=== PATIENT | female | born 1965 | race Caucasian/White ===

== ENCOUNTER 2021-07-06 06:42 | Inpatient (IN) | payer MEDICAID, SELFPAY ==
[~2021-07-06] VITALS: Ht 172.7 cm; Wt 84.4 kg
[2021-07-06 06:42] VITALS: BP 133/77
--- NOTE | 2021-07-06 06:42 | NUR ---
PT TREMAINE JIMENES. TAKEN TO BED 11
[2021-07-06] MEDS ORDERED: DICYCLOMINE 10 MG CAP PO ONE (07:25)
--- NOTE | 2021-07-06 07:25 | NUR ---
XRAY AT PATIENT BEDSIDE
--- NOTE | 2021-07-06 07:28 | NUR ---
18G IV ESTABLISHED IN L AC AND BLOODWORK COLLECTED. BLOODWORK HANDED TO TONGUE LINING STITCHER BEDSIDE
--- NOTE | 2021-07-06 07:30 | NUR ---
56Y FEMALE BIB SELF FROM HOME DUE TO ABDOMINAL CRAMPING/PAIN SINCE 0300 TODAY. PER PATIENT THE ABDOMINAL PAIN RANDOMLY STARTED AND HAS YET TO RESOLVE ITSELF. PT +N/-V. ABDOMEN IS TENDER TO TOUCH AND SOFT. PT DENIES ANY CHEST PAIN, SOB, FEVER/CHILLS. SKIN DRY AND INTACT AND PATIENT A&OX4. PT PLACED IN GOWN AND PUT ON BEDSIDE HOT WATER HEATER INSTALLER PMH: HTN, DM, SCHIZOPHRENIA, ESRD, BKA, BIPOLAR NKA
--- NOTE | 2021-07-06 07:36 | NUR ---
JOSE ROBERTO ISAAC COLLECTED AND WALKED OVER TO LAB
[2021-07-06 08:11] LABS: MAGNESIUM 1.9 mg/dL (1.8-2.4); PHOSPHORUS 5.8 mg/dL (2.5-4.9); PROTHROMBIN TIME 10.2 secs (10.8-13.4)
[2021-07-06 08:14] LABS: ALBUMIN 3.3 g/dL (3.4-5.0); ANION GAP 17.7 (8-16); CARBON DIOXIDE 21.5 mmol/L (21-32); POTASSIUM 4.2 mmol/L (3.5-5.1); TOTAL BILIRUBIN 0.5 mg/dL (0.0-1.0)
[2021-07-06 08:25] LABS: BASOPHILS # (AUTO) 0.2 K/uL (0.00-0.22); BASOPHILS % (AUTO) 0.9 % (0.0-2.0); EOSINOPHILS # (AUTO) 0.1 K/uL (0-0.4); EOSINOPHILS % (AUTO) 0.6 % (0.0-4.0); HEMATOCRIT 33.5 % (36-48); HEMOGLOBIN 10.6 g/dL (12.0-16.0); LYMPHOCYTES % (AUTO) 6.4 % (20.5-51.1); MEAN CORPUSCULAR HEMOGLOBIN 28 pg (27-31); MEAN CORPUSCULAR HGB CONC 32 g/dL (33-37); MEAN CORPUSCULAR VOLUME 87.5 fL (80-94); MONOCYTES % (AUTO) 5.8 % (1.7-9.3); NEUTROPHILS # (AUTO) 14.1 K/uL (1.8-7.7); PLATELET COUNT (AUTO) 312 K/uL (140-450); RED BLOOD CELL COUNT(AUTO) 3.82 MIL/uL (4.20-5.40); RED CELL DISTRIBUTION WIDTH 17.3 % (11.6-13.7); WHITE BLOOD COUNT (AUTO) 16.4 K/uL (4.8-10.8)
[2021-07-06 08:26] LABS: NEUTROPHILS % (AUTO) 86.3 % (42.2-75.2)
--- NOTE | 2021-07-06 08:46 | NUR ---
Patient appears to be resting comfortably in bed. Vital Signs within normal limits. Respirations even and unlabored.
[2021-07-06] MEDS ORDERED: ONDANSETRON 4 MG/2 ML VIAL IVP ONE (10:00)
[2021-07-06] MEDS ORDERED: VANCOMYCIN 1,000 MG in DEXTROSE 5% 250 ML IV ONE (10:00)
[2021-07-06] MEDS ORDERED: MORPHINE SULFATE 4 MG/ML SYR IVP ONE (10:00)
[2021-07-06] MEDS ORDERED: PIPERACILLIN/TAZOBACTAM 2.25 GM in DEXTROSE 5% 50 ML IV ONE (10:00)
[2021-07-06] MEDS ORDERED: PIPERACILLIN/TAZOBACTAM 2.25 GM VIAL IV ONE ×3 (10:03→22:58)
[2021-07-06] MEDS ORDERED: VANCOMYCIN 1,000 MG VIAL ONE (10:03)
[2021-07-06] MEDS ORDERED: AMLO10TA PO (10:41)
[2021-07-06] MEDS ORDERED: GABA300C PO (10:41)
[2021-07-06] MEDS ORDERED: METO25TE2 PO (10:41)
--- NOTE | 2021-07-06 10:41 | NUR ---
MED REC COMPLETED FOR PATIENT
--- NOTE | 2021-07-06 11:34 | NUR ---
Patient will be admitted to care of [facility]. Admited to TELE. TELE HOLD IN ED BED 11. Belongings list completed.
--- NOTE | 2021-07-06 12:35 | NUR ---
PATIENT PROVIDED WITH LUNCH TRAY AT BEDSIDE
--- NOTE | 2021-07-06 12:57 | NUR ---
[facility] flores in [facility] - 07/06/21 at 1300 by [email or web address] PT MOVED FROM BED 11 TO BED 9
--- NOTE | 2021-07-06 13:40 | NUR ---
Patient will be admitted to care of DR. JOHNSON. Admited to TELE. Will go to room 125B. Belongings list completed. Report to MARYBETH KELLY. PT TAKEN VIA SUSHILA WITH CHAD BRYAN
--- NOTE | 2021-07-06 13:50 | NUR ---
PT ARRIVED AT UNIT VIA GURNEY, WAS ABLE TO TRANSFER SELF TO BED. PT AWAKE ALERT, POSITIONED TO COMFORT. IV TO LEFT AC 20G PATENT INTACT, SL. PT ON ROOM AIR, NO SOB NOTED, SKIN INTACT. INITIAL ASSESSMENT DONE, ALL SAFETY PRECAUTION MET, ORIENT PT TO CALL LIGHT, BED AND ROOM, CALL LIGHT WITHIN REACH, WILL CONTINUE TO MONITOR.
[2021-07-06 14:00] VITALS: BP 120/63
[2021-07-06] MEDS: LORazepam 2 MG/ML VIAL IVP PRN ×2 (15:02→22:45)
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
[2021-07-06 16:00] VITALS: BP 116/57
--- NOTE | 2021-07-06 16:00 | NUR ---
CALLED TELEPHYCH SERVICE REGARDING NEW ORDER FOR CONSULT. WAS TOLD DR. Iniguez WILL CALL BACK WITH TIME FOR TELE CONFRENCE. AWAITING FOR CALL BACK
--- NOTE | 2021-07-06 16:30 | NUR ---
PT HAS NOT URINATE, AND PT REFUSED CATHETER INSERTION, NOTIFIED DR JOHNSON.
--- NOTE | 2021-07-06 17:08 | NUR ---
RECEIVED PHONE CALL FROM 'S OFFICE REGARDING TELEPSYCH, STATED SCHEDULED AT [address] [facility]. WILL ENDORSE
[2021-07-06] MEDS ORDERED: DEXTROSE 50% 50 ML SYR IVP PRN (18:00)
[2021-07-06] MEDS ORDERED: PIPERACILLIN/TAZOBACTAM 3.375 GM VIAL IV ONE (18:15)
[2021-07-06] MEDS: PIPERACILLIN/TAZOBACTAM 2.25 GM in DEXTROSE 5% 50 ML IV SCH (18:46)
--- NOTE | 2021-07-06 19:35 | NUR ---
ENDORSED PT TO BAND SEWER NURSE FOR CONTINUOUS OF CARE.
[2021-07-06 20:00] VITALS: BP 155/70
[2021-07-06] MEDS: BLOOD GLUCOSE MONITORING 1 DEV DEV FS SCH (21:00)
[2021-07-07] VITALS: BP 150/72
--- NOTE | 2021-07-07 00:32 | NUR ---
PATIENT AWAKE ALERT X 3 PATIENT TALKING ABOUT THE MAFIA COMING TO KILL HER. PATIENT ON MONITOR SINUS LUNGS DIMINISH. PATIENT HAS A PERMA CATH UPPER RIGHT CHEST. OH TO PUT IN A PERMA CATH TOMORROW. CONSENT TO BE SIGN IN A.M.PATIENT HAD A STAT EKG SHOWED LEFT VENTRICULAR HYPERTROPHY. AWARE. PATIENT MEDICATED 2244 WITH ATIVAN 1 MG IVP.
[2021-07-07 04:00] VITALS: BP 156/70
[2021-07-07] MEDS ORDERED: PIPERACILLIN/TAZOBACTAM 2.25 GM VIAL IV ONE (05:37)
[2021-07-07] MEDS: PIPERACILLIN/TAZOBACTAM 2.25 GM in DEXTROSE 5% 50 ML IV SCH ×6 (06:00→23:28)
[2021-07-07] MEDS: BLOOD GLUCOSE MONITORING 1 DEV DEV FS SCH ×5 (06:24→21:32)
--- NOTE | 2021-07-07 07:30 | NUR ---
PT HAS BEEN ENDORSED BY FIELD NURSE CASE MANAGER NURSE FOR CONTINUITY OF CARE, POC DISCUSSED. PT IS RESTING IN BED WITH NO ACUTE S/S OF DISTRESS. PT CONFUSED AND KEEPS YELLING. CALL LIGHT WITHIN REACH, ALL SAFETY MEASURES IN PLACE, WILL CONTINUE TO MONITOR
[2021-07-07 08:00] VITALS: BP 138/64
--- NOTE | 2021-07-07 08:49 | NUR ---
PATIENT HAS BEEN SCREENED AND CATEGORIZED MODERATE NUTRITION RISK. PATIENT WILL BE SEEN WITHIN 3-5 DAYS OF ADMISSION. DENISE SAUN[address]ERS [address]
[2021-07-07] MEDS: LORazepam 2 MG/ML VIAL IVP PRN ×2 (09:13→15:33)
--- NOTE | 2021-07-07 09:13 | NUR ---
PRN ATIVAN ADMINISTERED PER MD ORDER. PT TOLERATED ADMINISTRATION. ALL SAFETY MEASURES IN PLACE. CALL LIGHT WITHIN REACH. WILL CONTINUE TO MONITOR.
[2021-07-07 11:05] LABS: ANION GAP 17.9 (8-16); CARBON DIOXIDE 18.3 mmol/L (21-32); POTASSIUM 4.2 mmol/L (3.5-5.1)
[2021-07-07 11:06] LABS: CREATININE 5.4 mg/dL (0.6-1.3)
--- NOTE | 2021-07-07 11:17 | NUR ---
NOTIFIED MD REGARDS TO CRITICAL, NO NEW ORDERS RECEIVED
--- NOTE | 2021-07-07 11:42 | NUR ---
[facility] IV MEDICATION ADMINISTERED PER MD ORDER, IV PATENT. BLOOD GLUCOSE IS 105, NO INSULIN NEEDED PER SLIDING SCALE
[2021-07-07 12:00] VITALS: BP 159/85
[2021-07-07 12:14] LABS: BASOPHILS # (AUTO) 0.1 K/uL (0.00-0.22); BASOPHILS % (AUTO) 0.3 % (0.0-2.0); EOSINOPHILS # (AUTO) 0.1 K/uL (0-0.4); EOSINOPHILS % (AUTO) 0.4 % (0.0-4.0); HEMATOCRIT 31.8 % (36-48); LYMPHOCYTES # (AUTO) 1.2 K/uL (2.5-16.5); MEAN CORPUSCULAR HEMOGLOBIN 28 pg (27-31); MEAN CORPUSCULAR HGB CONC 31 g/dL (33-37); MEAN CORPUSCULAR VOLUME 87.8 fL (80-94); MONOCYTES # (AUTO) 1.2 K/uL (0.8-1.0); MONOCYTES % (AUTO) 5.7 % (1.7-9.3); NEUTROPHILS # (AUTO) 17.9 K/uL (1.8-7.7); NEUTROPHILS % (AUTO) 87.6 % (42.2-75.2); PLATELET COUNT (AUTO) 244 K/uL (140-450); RED BLOOD CELL COUNT(AUTO) 3.62 MIL/uL (4.20-5.40); RED CELL DISTRIBUTION WIDTH 17.5 % (11.6-13.7); WHITE BLOOD COUNT (AUTO) 20.5 K/uL (4.8-10.8)
--- NOTE | 2021-07-07 13:00 | NUR ---
CONSENT FOR REMOVAL OF OLD CATH, AND REPLACEMENT OF NEW SHERMAN WAS RECEIVED VIA PHONE CALL WITH DAUGHTER. DR DUTTA AT BEDSIDE, UNSUCCESSFUL AT PLACING ORDERED SHERMAN, WILL GO UNDER ANESTHESIA THIS AFTERNOON FOR NEW PLACEMENT. FAMILY AWARE, PT AWARE - PLACED NPO. NO ACUTE DISTRESS, PT STABLE, CALL LIGHT WITHIN REACH
--- NOTE | 2021-07-07 13:02 | NUR ---
PTS DAUGHTER CALLED, STATES PT LIVES WITH THEM AND PT IS BECOMING INCREASINGLY DIFFICULT TO CARE FOR DUE TO PTS REFUSAL TO CONTINUE WITH MEDICATION. STATED ORDER SS CONSULT. MICAH WELCH [phone] IS DAUGHTERS PHONE NUMBER
--- NOTE | 2021-07-07 13:30 | NUR ---
PT INCONTINENT, CLEANED, BED CHANGED, REPOSITIONED, STABLE IN BED, WILL CONTINUE TO MONITOR
[2021-07-07] MEDS ORDERED: ACETAMINOPHEN 325 MG TAB PO PRN (14:20)
--- NOTE | 2021-07-07 14:50 | NUR ---
DC PLANNING: PER FAMILY REQUEST UNABLE TO TAKE CARE OF HER SHE IS TOO DIFFICULT. CALLED [facility] [phone] SPOKE WITH MISTY CALDERON DISCUSSED THE ISSUE PER YUMIKO ONCE SHE RECEIVE THE ORDER WILL WORK ON IT. CM TO FOLLOW Addendum: 07/07/21 at 1535 by Bria Hagan RN DC PLANNING: RECEIVED A CALL FROM [employer] CM NAME ALCIDES [phone] DISCUSSED THE DC PLAN NEEDS PER ALCIDES REQUESTING THE NEED FOR SNF PLACEMENT OR PSYCH PLACEMENT. NOTIFIED MD ,AWAITING FOR THE RESPONSE. CM TO FOLLOW
--- NOTE | 2021-07-07 15:33 | NUR ---
PRN ATIVAN ADMINISTERED PER MD ORDER, PT DYLON
[2021-07-07 16:00] VITALS: BP 157/87
--- NOTE | 2021-07-07 17:20 | NUR ---
PT HAS BEEN TAKEN TO THE OR IN STABLE CONDITION AFTER PT HAS BEEN CLEANED UP, LARGE BM NOTED.
[2021-07-07] MEDS ORDERED: LIDOCAINE 1% 500 MG/50 ML VIAL ONE (17:37)
[2021-07-07] MEDS ORDERED: BUPIVACAINE-MPF/EPI 0.25% 10 ML VIAL INJ ONE (17:37)
[2021-07-07] MEDS ORDERED: MIDAZOLAM 2 MG/2 ML VIAL ONE (17:50)
[2021-07-07] MEDS ORDERED: KETAMINE 500 MG/5 ML VIAL ONE (17:52)
[2021-07-07] MEDS ORDERED: PROPOFOL 200 MG/20 ML VIAL IV ONE (17:57)
[2021-07-07] MEDS ORDERED: HYDROmorphone 1 MG/ML AMP IVP PRN (18:40)
[2021-07-07] MEDS ORDERED: MORPHINE SULFATE 4 MG/ML SYR IV PRN (18:40)
[2021-07-07] MEDS ORDERED: LABETALOL 100 MG/20 ML VIAL ONE (18:44)
--- NOTE | 2021-07-07 19:02 | NUR ---
PT STILL IN OR , WILL ENDORSE POC TO TIME SIGNAL WIRER RN.
[2021-07-07 20:00] VITALS: BP 130/71
[2021-07-07] MEDS: HALOPERIDOL 5 MG TAB PO SCH (21:46)
[2021-07-08] MEDS: PIPERACILLIN/TAZOBACTAM 2.25 GM in DEXTROSE 5% 50 ML IV SCH ×4 (05:03→23:20)
[2021-07-08 06:01] LABS: ANION GAP 16.9 (8-16); CARBON DIOXIDE 18.1 mmol/L (21-32); MAGNESIUM 1.6 mg/dL (1.8-2.4); PHOSPHORUS 4.1 mg/dL (2.5-4.9)
[2021-07-08 06:13] LABS: CREATININE 5.5 mg/dL (0.6-1.3)
[2021-07-08 06:35] LABS: BASOPHILS % (AUTO) 0.1 % (0.0-2.0); EOSINOPHILS # (AUTO) 0.1 K/uL (0-0.4); EOSINOPHILS % (AUTO) 0.3 % (0.0-4.0); HEMATOCRIT 28.9 % (36-48); HEMOGLOBIN 9.2 g/dL (12.0-16.0); LYMPHOCYTES % (AUTO) 9.6 % (20.5-51.1); MEAN CORPUSCULAR HEMOGLOBIN 28 pg (27-31); MEAN CORPUSCULAR HGB CONC 32 g/dL (33-37); MEAN CORPUSCULAR VOLUME 87.8 fL (80-94); MONOCYTES # (AUTO) 1.3 K/uL (0.8-1.0); MONOCYTES % (AUTO) 6.1 % (1.7-9.3); NEUTROPHILS # (AUTO) 17.4 K/uL (1.8-7.7); NEUTROPHILS % (AUTO) 83.9 % (42.2-75.2); PLATELET COUNT (AUTO) 205 K/uL (140-450); RED BLOOD CELL COUNT(AUTO) 3.29 MIL/uL (4.20-5.40); RED CELL DISTRIBUTION WIDTH 17.1 % (11.6-13.7); WHITE BLOOD COUNT (AUTO) 20.8 K/uL (4.8-10.8)
--- NOTE | 2021-07-08 07:30 | NUR ---
RECEIVED BEDSIDE REPORT FROM ACID PATROLLER NURSE, NO ACUTE DISTRESS NOTED, ON ROOM AIR, NO SOB, LFA & LIJ IN PLACE, DRESSING DRY AND INTACT, INITIAL ASSESSMENT DONE, PT SELF TURNS, ALL SAFETY PRECAUTIONS MET, BED IN LOWEST POSITION, CALL LIGHT WITHIN REACH, WILL CONTINUE TO MONITOR.
[2021-07-08] MEDS: BLOOD GLUCOSE MONITORING 1 DEV DEV FS SCH ×4 (07:39→21:00)
[2021-07-08 08:00] VITALS: BP 135/70
[2021-07-08 12:00] VITALS: BP 137/70
--- NOTE | 2021-07-08 14:30 | NUR ---
FAMILY AT BEDSIDE, UPDATED ON POC, PT WILL HAVE DIALYSIS TMRW AM, PATIENT CLEANED AND REPOSITIONED
[2021-07-08 16:00] VITALS: BP 130/68
[2021-07-08] MEDS: INSULIN LISPRO SLIDING SCALE 100 UNITS/ML VIAL SUBQ PRN (17:00)
--- NOTE | 2021-07-08 18:36 | NUR ---
PT HAD BM - CLEANED AND REPOSITIONED, NO ACUTE DISTRESS, COMFORTABLE IN BED, VSS, PT NEEDS MET TODAY, SAFETY MEASURES MAINTAINED, CALL LIGHT WITHIN REACH, PT FREE FROM INJURY AND STABLE FOR ENDORSEMENT, WILL CONTINUE TO MONITOR
[2021-07-08] MEDS ORDERED: VANCOMYCIN PER PHARMACY MC PRN (19:25)
[2021-07-08] MEDS: HALOPERIDOL 5 MG TAB PO SCH (21:00)
[2021-07-08] MEDS ORDERED: VANCOMYCIN 1GM/DEXT 5% PREMIX 200 ML IV SCH ×3 (22:00→23:45)
[2021-07-09] MEDS ORDERED: VANCOMYCIN 1GM/DEXT 5% PREMIX 200 ML IV SCH (00:30)
[2021-07-09] MEDS ORDERED: VANCOMYCIN 1,000 MG VIAL ONE (00:34)
--- NOTE | 2021-07-09 04:43 | NUR ---
SALINE LOCK RESTARTED TO RFA (LFA INFILTRATED). ABX VANCOMYCIN REFUSED BY PT - "IT MAKES ME VERY VERY SICK." WILL ENDORSE TO DAY RN.
[2021-07-09] MEDS: PIPERACILLIN/TAZOBACTAM 2.25 GM in DEXTROSE 5% 50 ML IV SCH ×4 (06:00→23:32)
[2021-07-09 06:30] LABS: BASOPHILS # (AUTO) 0.1 K/uL (0.00-0.22); BASOPHILS % (AUTO) 0.3 % (0.0-2.0); EOSINOPHILS # (AUTO) 0.9 K/uL (0-0.4); EOSINOPHILS % (AUTO) 5.2 % (0.0-4.0); HEMATOCRIT 28.8 % (36-48); HEMOGLOBIN 9.2 g/dL (12.0-16.0); LYMPHOCYTES # (AUTO) 2.1 K/uL (2.5-16.5); MEAN CORPUSCULAR HEMOGLOBIN 28 pg (27-31); MEAN CORPUSCULAR HGB CONC 32 g/dL (33-37); MEAN CORPUSCULAR VOLUME 87.2 fL (80-94); MONOCYTES # (AUTO) 1.1 K/uL (0.8-1.0); MONOCYTES % (AUTO) 6.7 % (1.7-9.3); NEUTROPHILS # (AUTO) 12.2 K/uL (1.8-7.7); NEUTROPHILS % (AUTO) 74.8 % (42.2-75.2); PLATELET COUNT (AUTO) 170 K/uL (140-450); RED CELL DISTRIBUTION WIDTH 16.9 % (11.6-13.7); WHITE BLOOD COUNT (AUTO) 16.3 K/uL (4.8-10.8)
[2021-07-09 06:55] LABS: ANION GAP 14.7 (8-16); CARBON DIOXIDE 19.8 mmol/L (21-32); POTASSIUM 3.5 mmol/L (3.5-5.1)
[2021-07-09 06:59] LABS: MAGNESIUM 1.8 mg/dL (1.8-2.4); PHOSPHORUS 4.7 mg/dL (2.5-4.9)
[2021-07-09] MEDS: BLOOD GLUCOSE MONITORING 1 DEV DEV FS SCH ×4 (07:30→21:24)
--- NOTE | 2021-07-09 07:30 | NUR ---
RECEIVED BEDSIDE REPORT FROM RN TRANSITIONAL CARE NURSE FOR CONTINUITY OF CARE. PT IS AWAKE AND ANSWERING APPROPRIATELY. PERIODS OF CONFUSION AND AGGRESSIVENESS. ON RA WITH BREATHING UNLABORED. PT IS OLIGURIC AND INCONTINENT. SKIN IS INTACT, RIGHT BKA, EDEMA NOTED. IV IS IN THE RIGHT FA 22 GAUGE AND LEFT IJ PERMACATH PRESENT. PT IS STABLE. PLAN OF CARE DISCUSSED.
[2021-07-09 07:33] LABS: CREATININE 5.6 mg/dL (0.6-1.3)
[2021-07-09 08:00] VITALS: BP 145/90
--- NOTE | 2021-07-09 09:30 | NUR ---
PT TO RECEIVE DIALYSIS TODAY. INFORMED BY DR. GLEASON. PT CONSENTED TO PROCEDURE. CONSENT SIGNED BY PT, DR. GLEASON, AND RN. ROY ALREADY CONTACTED. DIALYSIS NURSE ON FLOOR, AWARE. WILL START HD AFTER PT HE IS WORKING WITH.
[2021-07-09 12:00] VITALS: BP 140/59
--- NOTE | 2021-07-09 12:00 | NUR ---
PT'S IV IS INFILTRATED AND ARM IS SWOLLEN. PT COMPLAINING OF PAIN IN THAT AREA. IV WAS REMOVED AND NEW IV PLACED. NEW IV IS IN THE RIGHT HAND 22 GAUGE WITH GOOD BACKFLOW AND FLUSHING WELL.
[2021-07-09] MEDS: INSULIN LISPRO SLIDING SCALE 100 UNITS/ML VIAL SUBQ PRN ×3 (12:45→21:25)
--- NOTE | 2021-07-09 13:12 | NUR ---
DAUGHTER MICAH CALLED AND STATED HER MOTHER IS IN THE HOSPITAL BECAUSE SHE CANNOT TAKE CARE OF HERSELF AND IS REFUSING TO TAKE MEDICATION. ASKED PT IS IF I COULD PROVIDE INFORMATION TO HER DAUGHTER AND SHE SAID NO. MICAH ASKED TO SPEAK TO CASE MANAGEMENT BUT PT REFUSED. WILL REASSESS WHEN DAUGHTER ARRIVES LATER.
[2021-07-09] MEDS: LORazepam 2 MG/ML VIAL IVP PRN ×2 (14:50→19:47)
--- NOTE | 2021-07-09 14:51 | NUR ---
PT WAS VERY AGITATED AND SCREAMING. PT APPEARS CONFUSED. PT STATING SHE IS GOING TO MAKE A LAWSUIT ON THE HOSPITAL BECAUSE PEOPLE ARE OUT TO GET HER. PT WAS GIVEN ATIVAN FOR ANXIETY. BP STABLE PRIOR TO ADMIN OF MEDICATION.
--- NOTE | 2021-07-09 15:00 | NUR ---
PT REQUESTED ATIVAN SHE WAS HAVING A LOT OF ANXIETY AND WAS SCREAMING. WHEN THE MEDICATION WAS BROUGHT TO THE BEDSIDE, PT REFUSED. PT STATED SHE DID NOT WANT TO FALL ASLEEP BEFORE HER DAUGHTER COMES TO VISIT. MEDICATION WAS WASTED AND WITNESSED BY CHAD SAUCEDO.
--- NOTE | 2021-07-09 15:15 | NUR ---
PT WORKING WITH PHYSICAL THERAPY. PT NOT VERY COOPERATIVE. PT REFUSED TO GET OUT OF BED WITH PT. WILL CONTINUE TO MONITOR.
[2021-07-09 16:00] VITALS: BP 135/62
--- NOTE | 2021-07-09 16:30 | NUR ---
DAUGHTER MICAH WELCH AT THE BEDSIDE. PHONE NUMBER [phone]. MICAH IS INQUIRING ABOUT BECOMING POA/CONSERVATOR FOR HER MOTHER JORGE. PT IS IN AGREEMENT WITH THIS STATEMENT. PT STATES SHE NEEDS HER DAUGHTER TO BE RESPONSIBLE FOR HER MEDICAL CARE BECAUSE SHE NEEDS TO MAKE SURE TO GET DIALYSIS ON TIME AND TAKE HER MEDICINE WHICH SHE HASN'T BEEN DOING ON HER OWN. SPOKE TO RENUKA, MARKET SURVEY REPRESENTATIVE, AND INFORMED HER OF THIS INFORMATION. PT HAS PERIODS OF CONFUSION AND AGGRESSIVE BEHAVIOR WHICH WAS RELAYED TO RENUKA. SHE RECOMMENDED A PSYCH EVAL AND ASKED ME TO SUGGEST THIS TO THE PRIMARY DOCTOR.
--- NOTE | 2021-07-09 16:41 | NUR ---
07/09/21 RD INITIAL ASSESSMENT COMPLETED PLEASE REFER TO NUTRITION ASSESSMENT UNDER CARE ACTIVITY FOR ESTIMATED NUTRITIONAL NEEDS. 1. CONTINUE HEPATIC DIET TOLERATED 2. MONITOR GI SYMPTOMS 3. RD TO FOLLOW-UP 3-5 DAYS, MODERATE RISK DENISE SAUNDERS RD
--- NOTE | 2021-07-09 17:00 | NUR ---
DIALYSIS NURSE AT BEDSIDE STARTING DIALYSIS. WILL MONITOR PT. SHE IS STABLE AT THIS TIME.
--- NOTE | 2021-07-09 17:24 | NUR ---
ZOSYN WAS NOT GIVEN ORDERED BECAUSE DIALYSIS IS IN PROGRESS.
--- NOTE | 2021-07-09 19:31 | NUR ---
ENDORSED PT TO YARDMASTER NURSE FOR CONTINUITY OF CARE. PT IS STABLE. PLAN OF CARE DISCUSSED.
--- NOTE | 2021-07-09 19:32 | NUR ---
RECEIVED BEDSIDE REPORT FROM DAY SHIFT RN FOR CONTINUITY OF CARE. PT IS CURRENTLY HAVING HEMODIALYSIS. PT IS ON RA. CALL LIGHT WITHIN REACH. ALL SAFETY MEASURES TAKEN. WILL CONTINUE TO OBSERVE THE PT.
--- NOTE | 2021-07-09 19:35 | NUR ---
PT IS CURRENTLY HAVING HEMODIALYSIS. PT IS COMPLAINING OF WANTING ATIVAN FOR HER ANXIETY. NO OTHER COMPLAINS. WILL FOLLOW UP WITH HER MEDICATION.
--- NOTE | 2021-07-09 19:50 | NUR ---
ATIVAN WAS GIVEN. NO ADVERSE REACTION NOTED. PT HAS NO FURTHER COMPLAINS. PT IS NOT IN ANY DISTRESS. BREATHING RHYTHMIC AND UNLABORED. WILL CONTINUE TO OBSERVE PT.
[2021-07-09 20:00] VITALS: BP 97/75
--- NOTE | 2021-07-09 20:50 | NUR ---
PT FINISHED DIALYSIS WITH 3L OUTPUT. PT IS NOT IN ANY DISTRESS. PT HAS NO COMPLAINS AT THIS TIME. CALL LIGHT WITHIN REACH. ALL SAFETY MEASURES TAKEN. WILL CONTINUE TO OBSERVE THE PT.
[2021-07-09] MEDS: HALOPERIDOL 5 MG TAB PO SCH (21:15)
--- NOTE | 2021-07-09 21:20 | NUR ---
ALL DUE MEDS GIVEN. NO ADVERSE REACTION NOTED. WILL CONTINUE TO MONITOR THE PT.
[2021-07-09] MEDS: MELATONIN 3 MG TAB PO PRN (23:59)
[2021-07-10] MEDS: MORPHINE SULFATE 2 MG/ML SYR IVP PRN ×3 (01:58→20:04)
[2021-07-10 04:00] VITALS: BP 120/58
[2021-07-10 06:04] LABS: BASOPHILS % (AUTO) 0.6 % (0.0-2.0); EOSINOPHILS # (AUTO) 0.8 K/uL (0-0.4); HEMOGLOBIN 9.8 g/dL (12.0-16.0); LYMPHOCYTES # (AUTO) 2.4 K/uL (2.5-16.5); LYMPHOCYTES % (AUTO) 29.6 % (20.5-51.1); MEAN CORPUSCULAR HEMOGLOBIN 28 pg (27-31); MEAN CORPUSCULAR HGB CONC 33 g/dL (33-37); MEAN CORPUSCULAR VOLUME 85.8 fL (80-94); MONOCYTES # (AUTO) 0.6 K/uL (0.8-1.0); MONOCYTES % (AUTO) 7.2 % (1.7-9.3); NEUTROPHILS # (AUTO) 4.3 K/uL (1.8-7.7); NEUTROPHILS % (AUTO) 52.6 % (42.2-75.2); PLATELET COUNT (AUTO) 183 K/uL (140-450); RED CELL DISTRIBUTION WIDTH 17.1 % (11.6-13.7); WHITE BLOOD COUNT (AUTO) 8.1 K/uL (4.8-10.8)
[2021-07-10] MEDS: PIPERACILLIN/TAZOBACTAM 2.25 GM in DEXTROSE 5% 50 ML IV SCH ×3 (06:09→17:39)
--- NOTE | 2021-07-10 06:10 | NUR ---
ALL DUE MEDS GIVEN. NO ADVERSE REACTION NOTED. WILL CONTINUE TO OBSERVE THE PT.
[2021-07-10] MEDS: BLOOD GLUCOSE MONITORING 1 DEV DEV FS SCH ×4 (06:22→21:00)
[2021-07-10 06:30] LABS: ANION GAP 17.6 (8-16); POTASSIUM 3.6 mmol/L (3.5-5.1)
[2021-07-10 06:46] LABS: MAGNESIUM 1.9 mg/dL (1.8-2.4); PHOSPHORUS 4.7 mg/dL (2.5-4.9)
[2021-07-10 07:14] LABS: CREATININE 4.9 mg/dL (0.6-1.3)
[2021-07-10] MEDS ORDERED: VANCOMYCIN 1,000 MG in DEXTROSE 5% 250 ML IV SCH ×4 (07:20)
--- NOTE | 2021-07-10 07:26 | NUR ---
PHYSICAL THERAPY CO-SIGN The Physical Therapy Progress Notes documented by Jewelry Mold Maker have been reviewed. Reviewed/Co-Signed by: Shannon Abdi Documentation Done by: GARCIA FARRELL PTA Addendum: 07/10/21 at 9075 by Shannon Abdi PT Amended: Links added.
--- NOTE | 2021-07-10 07:35 | NUR ---
RECEIVED BEDSIDE REPORT FROM FAMILY RESOURCE SPECIALIST NURSE FOR CONTINUITY OF CARE. PT IS AWAKE AND ALERT. PERIODS OF CONFUSION. ON RA WITH BREATHING UNLABORED. INCONTINENT OF THE BOWEL AND BLADDER. RIGHT BKA NOTED. IV IS IN THE RIGHT HAND 22 GAUGE SALINE LOCKED. LEFT IJ IN PLACE. PT IS STABLE. PLAN OF CARE DISCUSSED.
--- NOTE | 2021-07-10 09:00 | NUR ---
PT STATES SHE DOES NOT HAVE PAIN OR ANXIETY RIGHT NOW. NO DISTRESS NOTED. PROSTHETIC LEG AT BEDSIDE. ITEMS WITHIN REACH. FALL PRECAUTIONS IN PLACE.
[2021-07-10] MEDS: HYDROcodone/APAP 5/325 MG 1 TAB TAB PO PRN ×2 (09:55→14:08)
--- NOTE | 2021-07-10 09:56 | NUR ---
CALLED JANIS, PHARMACIST, AFTER NOTICING THE NORCO GIVEN YESTERDAY AT 1230 WHILE TAKING CARE OF PT WAS NOT DOCUMENTED. AT 1230 PT STATED PAIN AT A SCALE OF 6/10 IN THE BACK AND ABD. PT WAS GIVEN NORCO FOR PAIN. DOCUMENTING NOW FOR DISCREPANCY AND WILL GIVE COPY TO PHARMACY.
--- NOTE | 2021-07-10 11:05 | NUR ---
PT WORKING WITH PT. UP TO THE RESTROOM WITH STEADY GAIT. PT STABLE.
--- NOTE | 2021-07-10 11:11 | NUR ---
PHYSICAL THERAPY CO-SIGN The Physical Therapy Progress Notes documented by Acid Extractor have been reviewed. Reviewed/Co-Signed by: Shannon Abdi Documentation Done by: GARCIA FARRELL PTA Addendum: 07/10/21 at 1112 by Shannon Abdi PT Amended: Links added.
[2021-07-10 11:14] VITALS: BP 109/48
[2021-07-10] MEDS ORDERED: AMOX-999 PO (11:40)
[2021-07-10] MEDS: INSULIN LISPRO SLIDING SCALE 100 UNITS/ML VIAL SUBQ PRN ×2 (11:42→16:40)
--- NOTE | 2021-07-10 12:00 | NUR ---
MICAH, DAUGHTER, CALLED AND WANTED MORE INFORMATION ABOUT THE DISCHARGE FROM THE [facility]. PROVIDED PHONE NUMBER TO ANIMAL CONTROL OFFICER PARAMJIT KHOURY. THEY SPOKE WITH DAUGHTER AND PROVIDED INFORMATION ASKED. RESOURCES WILL BE GIVEN AT D/C FOR PSYCHIATRIC ASSISTANCE.
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
--- NOTE | 2021-07-10 13:25 | NUR ---
PAGED DR. BELLO PER DR. HOPSON ORDER TO ASK IF OKAY TO D/C AND CONTINUE TDC OUTPATIENT. WILL WAIT FOR CALL BACK.
[2021-07-10 13:29] VITALS: BP 109/48
--- NOTE | 2021-07-10 13:54 | NUR ---
ROUNDED ON PT. SHE IS STABLE AT THIS TIME. ASLEEP IN SEMI FOWLERS POSITION. LINES ARE INTACT. WILL MONITOR.
--- NOTE | 2021-07-10 14:26 | NUR ---
INFORMED DR. HOPSON THAT I HAVE BEEN UNABLE TO GET A HOLD OF DR. BELLO TO [place] FOR D/C. HE STATED HE WILL CONTACT DR. TODD FOR HIS NUMBER.
--- NOTE | 2021-07-10 14:34 | NUR ---
RECEIVED CALL BACK FROM DR. BELLO AND ASKED IF THE PT IS OKAY TO D/C. HE STATED HE WANTED TO SEE THE PATIENT FIRST. HE IS ON HIS WAY AND WILL BE HERE IN 30 MINUTES.
--- NOTE | 2021-07-10 14:53 | NUR ---
DR. BELLO AT BEDSIDE ASSESSING PT. DR. BELLO WANTS TO SPEAK WITH DR. SHARMA ABOUT PLACEMENT OF A PERMANENT CATHETER FOR DIALYSIS. PAGED DR. SHARMA VIA OFFICE. WILL WAIT FOR RESPONSE BACK FROM DR. SHARMA.
--- NOTE | 2021-07-10 15:32 | NUR ---
RECEIVED TELEPHONE ORDER FROM DR. HOPSON TO CANCEL THE DISCHARGE ORDER. DR. BELLO SPOKE WITH DR. DUTTA ON THE PHONE TO PLACE THE DIALYSIS CATHETER- PERMANENT. DR. DUTTA AGREED.
[2021-07-10 16:00] VITALS: BP 140/80
--- NOTE | 2021-07-10 17:00 | NUR ---
PT IS STABLE. NO DISTRESS NOTED. ASLEEP IN SEMI FOWLERS POSITION. AWOKE PT AND SHE TOLD ME SHE INFORMED HER DAUGHTER THAT SHE IS NOT BEING DISCHARGED. PT UNDERSTANDS PLAN OF CARE FOR PERMANENT DIALYSIS CATH PLACEMENT.
--- NOTE | 2021-07-10 19:19 | NUR ---
ENDORSED PT TO SUPERVISOR VOLUNTEER SERVICES NURSE FOR CONTINUITY OF CARE. PT IS STABLE AT THIS TIME. PLAN OF CARE DISCUSSED.
[2021-07-10 20:00] VITALS: BP 149/83
[2021-07-10] MEDS: HALOPERIDOL 5 MG TAB PO SCH (21:00)
[2021-07-10] MEDS: MELATONIN 3 MG TAB PO PRN (22:16)
[2021-07-11] MEDS: PIPERACILLIN/TAZOBACTAM 2.25 GM in DEXTROSE 5% 50 ML IV SCH ×4 (00:56→17:59)
[2021-07-11] MEDS: MORPHINE SULFATE 2 MG/ML SYR IVP PRN ×3 (01:02→13:05)
--- NOTE | 2021-07-11 02:15 | NUR ---
PT AWARE SHE IS NPO FOR A.M. PROCEDURE. PT HAS NEITHER DRANK ANY FLUIDS NOR EATEN ANY FOODS SINCE MIDNIGHT. NO FOOD OR FLUID IS AT BEDSIDE.
[2021-07-11 06:02] LABS: ANION GAP 14.7 (8-16); CARBON DIOXIDE 23.9 mmol/L (21-32); POTASSIUM 3.6 mmol/L (3.5-5.1)
[2021-07-11 06:10] LABS: CREATININE 5.6 mg/dL (0.6-1.3)
[2021-07-11 06:11] LABS: PHOSPHORUS 5.7 mg/dL (2.5-4.9)
[2021-07-11 06:13] LABS: BASOPHILS % (AUTO) 0.5 % (0.0-2.0); EOSINOPHILS # (AUTO) 0.8 K/uL (0-0.4); EOSINOPHILS % (AUTO) 11.8 % (0.0-4.0); HEMATOCRIT 28.9 % (36-48); HEMOGLOBIN 9.4 g/dL (12.0-16.0); LYMPHOCYTES # (AUTO) 2.7 K/uL (2.5-16.5); LYMPHOCYTES % (AUTO) 38.4 % (20.5-51.1); MEAN CORPUSCULAR HEMOGLOBIN 28 pg (27-31); MEAN CORPUSCULAR HGB CONC 32 g/dL (33-37); MEAN CORPUSCULAR VOLUME 86.2 fL (80-94); MONOCYTES # (AUTO) 0.6 K/uL (0.8-1.0); MONOCYTES % (AUTO) 9.1 % (1.7-9.3); NEUTROPHILS # (AUTO) 2.8 K/uL (1.8-7.7); NEUTROPHILS % (AUTO) 40.2 % (42.2-75.2); PLATELET COUNT (AUTO) 197 K/uL (140-450); RED BLOOD CELL COUNT(AUTO) 3.35 MIL/uL (4.20-5.40); RED CELL DISTRIBUTION WIDTH 16.8 % (11.6-13.7)
--- NOTE | 2021-07-11 08:38 | NUR ---
Pt report received from nightclub manager RN, pt reporting pain in lower abdomen, non pharmaceutical sources not effective. pt given pain medication.
[2021-07-11 09:02] VITALS: BP 153/74
--- NOTE | 2021-07-11 10:25 | NUR ---
PATIENT HAS BEEN SCREENED AND CATEGORIZED MODERATE NUTRITION RISK. PATIENT WILL BE SEEN WITHIN 3-5 DAYS OF ADMISSION 07/11/21-07/15/[address]
--- NOTE | 2021-07-11 10:28 | NUR ---
PATIENT HAS BEEN SCREENED AND CATEGORIZED LOW NUTRITION RISK. PATIENT WILL BE SEEN WITHIN 7 DAYS OF ADMISSION. 07/17/[address]
[2021-07-11] MEDS: BLOOD GLUCOSE MONITORING 1 DEV DEV FS SCH ×4 (11:41→20:53)
[2021-07-11 13:13] VITALS: BP 148/86
--- NOTE | 2021-07-11 13:50 | NUR ---
ATTEMPTED TO SEE PATIENT FOR PHYSICAL THERAPY TREATMENT HOWEVER PATIENT BEGINNING DIALYSIS TREATMENT. WILL HOLD PHYSICAL THERAPY FOR TODAY.
--- NOTE | 2021-07-11 14:50 | NUR ---
PT TRANSPORTED TO SURGERY FOR PERMACATH PLACEMENT.
[2021-07-11] MEDS ORDERED: BUPIVACAINE-MPF/EPI 0.25% 10 ML VIAL INJ ONE (15:18)
[2021-07-11] MEDS ORDERED: LIDOCAINE 1% 500 MG/50 ML VIAL ONE (15:18)
[2021-07-11] MEDS ORDERED: fentaNYL citrate 0.05 MG/ML VIAL ONE (15:32)
[2021-07-11] MEDS ORDERED: PROPOFOL 200 MG/20 ML VIAL IV ONE (15:33)
[2021-07-11] MEDS ORDERED: SUCCINYLCHOLINE CHLORIDE 200 MG/10 ML VIAL IVP ONE (15:33)
[2021-07-11 15:36] VITALS: BP 148/86
[2021-07-11 15:39] VITALS: BP 148/86
[2021-07-11] MEDS ORDERED: PIPERACILLIN/TAZOBACTAM 2.25 GM VIAL IV ONE (16:46)
--- NOTE | 2021-07-11 16:49 | NUR ---
PER MD PT SHOULD BE DISCHARGED AFTER PERMA-CATH PLACEMENT. PT'S FAMILY TO BE HERE AT 8PM. LOBSTER CATCHER AWARE.
--- NOTE | 2021-07-11 18:00 | NUR ---
PT RECEIVED ZOSYN PRIOR TO ARRIVAL TO FLOOR.
--- NOTE | 2021-07-11 18:12 | NUR ---
PT HAS LEFT [facility] PERMACATH, CDI, PT VSS, NAD NOTED. PT TO BE DISCHARGED AT 8PM VIA DAUGHTER.
--- NOTE | 2021-07-11 19:09 | NUR ---
ENDORSED CARE TO INSOLE AND HEEL STIFFENER RN.
[2021-07-11 20:27] VITALS: BP_SYST 142; BP_SYST 156; BP_DIAS 81
--- NOTE | 2021-07-11 21:47 | NUR ---
dc'd to home via [place] accompanied by daughter. discharge instructions given to daughter verbalized well understanding. VSS denies pain . iv site dc'd . belongings and patient home meds sent with patient.
== END 2021-07-11 21:40 | disposition home or self-care (01) | DRG 720 ==
LOC: MED 06:42 → MTU 11:34 → MMU 13:20 → UNDODISIN 07-11 18:03
PROVIDERS: ADMIT Family Medicine; ATTEND Family Medicine
PROC: 02HV33Z Insertion of Infusion Device into Superior Vena Cava, Percutaneous Approach (ICD-10-PCS; 2021-07-07)
PROC: B548ZZA Ultrasonography of Superior Vena Cava, Guidance (ICD-10-PCS; 2021-07-07)
PROC: 05JYXZZ Inspection of Upper Vein, External Approach (ICD-10-PCS; principal; 2021-07-07 17:30)
PROC: 0JPT3XZ Removal of Tunneled Vascular Access Device from Trunk Subcutaneous Tissue and Fascia, Percutaneous Approach (ICD-10-PCS; 2021-07-11)
PROC: 5A1D70Z Performance of Urinary Filtration, Intermittent, Less than 6 Hours Per Day (ICD-10-PCS; 2021-07-11)
DX: A41.89 Other specified sepsis (principal); N17.0 Acute kidney failure with tubular necrosis; E44.1 Mild protein-calorie malnutrition; I12.0 Hypertensive chronic kidney disease with stage 5 chronic kidney disease or end stage renal disease; D63.1 Anemia in chronic kidney disease; F25.0 Schizoaffective disorder, bipolar type; E87.1 Hypo-osmolality and hyponatremia; E11.51 Type 2 diabetes mellitus with diabetic peripheral angiopathy without gangrene; T82.868A Thrombosis due to vascular prosthetic devices, implants and grafts, initial encounter; Z60.2 Problems related to living alone; Y84.1 Kidney dialysis as the cause of abnormal reaction of the patient, or of later complication, without mention of misadventure at the time of the procedure; N18.6 End stage renal disease; E11.22 Type 2 diabetes mellitus with diabetic chronic kidney disease; I87.8 Other specified disorders of veins; E86.0 Dehydration; E78.5 Hyperlipidemia, unspecified; M13.852 Other specified arthritis, left hip; A08.4 Viral intestinal infection, unspecified; Z20.822 Contact with and (suspected) exposure to COVID-19; K52.89 Other specified noninfective gastroenteritis and colitis; E83.42 Hypomagnesemia; I45.2 Bifascicular block; Z99.2 Dependence on renal dialysis; Z86.16 Personal history of COVID-19; Z89.511 Acquired absence of right leg below knee; Z90.49 Acquired absence of other specified parts of digestive tract; Z90.710 Acquired absence of both cervix and uterus; Z79.899 Other long term (current) drug therapy; Y92.89 Other specified places as the place of occurrence of the external cause; Z68.28 Body mass index [BMI] 28.0-28.9, adult
CPT/HCPCS: 36415; 71045; 71250; 73502; 77003; 80048; 80053; 80202; 82948; 83605; 83690; 83735; 83880; 84100; 84484; 85025; 85610; 85730; 87040; 87070; 87081; 93005; 96365; 96367; 96375; 97110; 97112; 97116; 97163-GP; 97530; 99285; C1752; J0330; J1630; J1644; J2001; J2060; J2250; J2270; J2405; J2543; J2704; J3010; J3370; J3490; J7060; Q0092

== ENCOUNTER 2021-09-03 01:00 | Emergency (ER) | payer MEDICAID, SELFPAY ==
[~2021-09-03] VITALS: Ht 162.6 cm; Wt 100.2 kg
[2021-09-03 01:00] VITALS: BP 169/131
[~2021-09-03 01:00] MED LIST: AMLO10TA PO; AMOX-999 PO; GABA300C PO; METO25TE2 PO
[2021-09-03] MEDS ORDERED: OLANZapine 5 MG ODT SL ONE (01:15)
[2021-09-03] MEDS ORDERED: HALOPERIDOL IM 5 MG/ML VIAL IM ONE (01:20)
[2021-09-03] MEDS ORDERED: HALOPERIDOL IM 5 MG/ML VIAL ONE (01:20)
[2021-09-03] MEDS ORDERED: LORazepam 2 MG/ML VIAL ONE (01:34)
[2021-09-03] MEDS ORDERED: LORazepam 2 MG/ML VIAL IM ONE (01:35)
[2021-09-03 01:50] LABS: APPEARANCE,URINE CLOUDY (CLEAR); BILIRUBIN,URINE NEGATIVE (NEGATIVE); BLOOD, URINE 2+ (NEGATIVE); COLOR,URINE YELLOW (YELLOW); LEUKOCYTE ESTERASE ,URINE 2+ (NEGATIVE); NITRITE, URINE NEGATIVE (NEGATIVE); UGLUCOSE NEGATIVE (NEGATIVE)
[2021-09-03 01:57] LABS: RBC,URINE 0-5 /HPF (0-5); WBC,URINE TOO MANY TO COUNT /HPF (0-5)
[2021-09-03 02:00] LABS: BARBITURATE, URINE NEGATIVE ng/ml (NEG <=200); BENZODIAZEPINE, URINE NEGATIVE ng/mL (NEG <=200); CANNABINOID, URINE NEGATIVE ng/mL (NEG <=50); COCAINE, URINE NEGATIVE ng/mL (NEG <=300); PHENCYCLIDINE SCREEN,URINE NEGATIVE ng/mL (NEG <=25)
[2021-09-03 02:01] LABS: OPIATE, URINE NEGATIVE ng/mL (NEG <=2000)
[2021-09-03 02:21] LABS: BASOPHILS # (AUTO) 0.1 K/uL (0.00-0.22); BASOPHILS % (AUTO) 1.1 % (0.0-2.0); EOSINOPHILS # (AUTO) 0.2 K/uL (0-0.4); EOSINOPHILS % (AUTO) 2.9 % (0.0-4.0); HEMATOCRIT 34.2 % (36-48); HEMOGLOBIN 11.1 g/dL (12.0-16.0); LYMPHOCYTES # (AUTO) 1.5 K/uL (2.5-16.5); LYMPHOCYTES % (AUTO) 17.9 % (20.5-51.1); MEAN CORPUSCULAR HEMOGLOBIN 27 pg (27-31); MEAN CORPUSCULAR HGB CONC 32 g/dL (33-37); MEAN CORPUSCULAR VOLUME 84.2 fL (80-94); MONOCYTES # (AUTO) 0.4 K/uL (0.8-1.0); MONOCYTES % (AUTO) 5.2 % (1.7-9.3); NEUTROPHILS % (AUTO) 72.9 % (42.2-75.2); PLATELET COUNT (AUTO) 240 K/uL (140-450); RED BLOOD CELL COUNT(AUTO) 4.06 MIL/uL (4.20-5.40); RED CELL DISTRIBUTION WIDTH 17.4 % (11.6-13.7); WHITE BLOOD COUNT (AUTO) 8.3 K/uL (4.8-10.8)
[2021-09-03 02:47] LABS: ALBUMIN 3.2 g/dL (3.4-5.0); ANION GAP 17.4 (8-16); ASPARTATE AMINOTRANSFERASE 17 U/L (15-37); CHLORIDE 107 mmol/L (98-107); GFR ARICAN-AMERICAN 10 mL/min (>90); GLUCOSE 153 mg/dL (74-106); POTASSIUM 4.4 mmol/L (3.5-5.1); SODIUM SERUM 141 mmol/L (136-145); TOTAL BILIRUBIN 0.2 mg/dL (0.0-1.0); UREA NITROGEN, BLOOD 51 mg/dL (7-18)
[2021-09-03 02:49] LABS: ACETAMINOPHEN < 0.5 ug/ml (10-30); CREATININE 5.8 mg/dL (0.6-1.3); SALICYLATE < 2.8 mg/dL (2.8-20.0)
[2021-09-03] MEDS ORDERED: CEPH-588 PO (04:26)
[2021-09-03] MEDS ORDERED: cefTRIAXone 1,000 MG VIAL ONE (04:28)
[2021-09-03 09:25] VITALS: BP 132/86
== END 2021-09-03 10:46 | disposition home or self-care (01) ==
LOC: MED 01:00
DX: F22 Delusional disorders (principal); N39.0 Urinary tract infection, site not specified; R45.1 Restlessness and agitation; E11.22 Type 2 diabetes mellitus with diabetic chronic kidney disease; I12.0 Hypertensive chronic kidney disease with stage 5 chronic kidney disease or end stage renal disease; N18.6 End stage renal disease; Z99.2 Dependence on renal dialysis; Z79.2 Long term (current) use of antibiotics; Z79.899 Other long term (current) drug therapy; F31.9 Bipolar disorder, unspecified
CPT/HCPCS: 36415; 71045; 80053; 80305; 81001; 81025; 85025; 87086; 93005; 96365; 96372; 99291; G0480; G0482; J0696; J1630; J2060; Q0092

== ENCOUNTER 2021-09-03 15:37 | Emergency (ER) | payer MEDICAID ==
[~2021-09-03] VITALS: Ht 167.6 cm; Wt 99.8 kg
[~2021-09-03 15:37] MED LIST changes: +CEPH-588 PO
[2021-09-03 15:40] VITALS: BP 142/128
--- NOTE | 2021-09-03 15:57 | NUR ---
PER MD MARTINEZ, PT IS TO BE SITTED ON CHAIR A WITH TRIAGE LEVEL 5.
--- NOTE | 2021-09-03 16:45 | NUR ---
Patient being evaluated by DR MARTINEZ at bedside.
[2021-09-03 16:46] VITALS: BP 142/128
--- NOTE | 2021-09-03 16:46 | NUR ---
Patient discharged BY DR MARTINEZ with v/s stable. Written and verbal after care instructions given and explained. Patient verbalized understanding. Ambulatory with steady gait. All questions addressed prior to discharge. Advised to follow up with PMD.
--- NOTE | 2021-09-03 17:35 | NUR ---
NO NURSING INTERVENTIONS NEEDED, SEEN & TREATED BY DR MARTINEZ.
== END 2021-09-03 16:46 | disposition home or self-care (01) ==
LOC: MED 15:37
DX: E11.22 Type 2 diabetes mellitus with diabetic chronic kidney disease (principal); I12.0 Hypertensive chronic kidney disease with stage 5 chronic kidney disease or end stage renal disease; N18.6 End stage renal disease; Z99.2 Dependence on renal dialysis
CPT/HCPCS: 99281

== ENCOUNTER 2021-09-10 00:35 | Inpatient (IN) | payer MEDICAID ==
[~2021-09-10] VITALS: Ht 167.6 cm; Wt 102.1 kg
[2021-09-10 00:35] VITALS: BP 178/108
--- NOTE | 2021-09-10 00:43 | NUR ---
PT TREMAINE BLS. TAKEN TO BED 7
--- NOTE | 2021-09-10 00:52 | NUR ---
Dr. Chin examining patient.
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
[2021-09-10] MEDS ORDERED: hydrALAZINE 20 MG/ML VIAL IVP ONE (01:10)
[2021-09-10 01:19] LABS: BASOPHILS # (AUTO) 0.1 K/uL (0.00-0.22); BASOPHILS % (AUTO) 0.9 % (0.0-2.0); EOSINOPHILS # (AUTO) 0.1 K/uL (0-0.4); EOSINOPHILS % (AUTO) 1.7 % (0.0-4.0); HEMATOCRIT 39.4 % (36-48); HEMOGLOBIN 12.5 g/dL (12.0-16.0); LYMPHOCYTES % (AUTO) 25.5 % (20.5-51.1); MEAN CORPUSCULAR HEMOGLOBIN 27 pg (27-31); MEAN CORPUSCULAR HGB CONC 32 g/dL (33-37); MEAN CORPUSCULAR VOLUME 84.7 fL (80-94); MONOCYTES # (AUTO) 0.4 K/uL (0.8-1.0); MONOCYTES % (AUTO) 4.9 % (1.7-9.3); NEUTROPHILS # (AUTO) 5.3 K/uL (1.8-7.7); PLATELET COUNT (AUTO) 257 K/uL (140-450); RED BLOOD CELL COUNT(AUTO) 4.65 MIL/uL (4.20-5.40)
[2021-09-10 01:37] LABS: ALBUMIN 3.5 g/dL (3.4-5.0); ANION GAP 13.5 (8-16); ASPARTATE AMINOTRANSFERASE 13 U/L (15-37); CARBON DIOXIDE 23.7 mmol/L (21-32); CHLORIDE 105 mmol/L (98-107); GFR ARICAN-AMERICAN 11 mL/min (>90); GLUCOSE 126 mg/dL (74-106); POTASSIUM 4.2 mmol/L (3.5-5.1); SODIUM SERUM 138 mmol/L (136-145); TOTAL BILIRUBIN 0.3 mg/dL (0.0-1.0); UREA NITROGEN, BLOOD 34 mg/dL (7-18)
[2021-09-10 01:44] LABS: ACETAMINOPHEN < 0.5 ug/ml (10-30); SALICYLATE < 2.8 mg/dL (2.8-20.0)
--- NOTE | 2021-09-10 02:46 | NUR ---
urine sample obtained via straight cath w 450cc of urine output.
--- NOTE | 2021-09-10 02:51 | NUR ---
pt bp 174/90 ERMD aware, no new orders.
--- NOTE | 2021-09-10 02:59 | NUR ---
rian and benito sample collected from patient nares and sent to lab.
[2021-09-10 03:02] LABS: BARBITURATE, URINE NEGATIVE ng/ml (NEG <=200); BENZODIAZEPINE, URINE NEGATIVE ng/mL (NEG <=200); CANNABINOID, URINE NEGATIVE ng/mL (NEG <=50); COCAINE, URINE NEGATIVE ng/mL (NEG <=300); OPIATE, URINE NEGATIVE ng/mL (NEG <=2000); PHENCYCLIDINE SCREEN,URINE NEGATIVE ng/mL (NEG <=25)
--- NOTE | 2021-09-10 03:33 | NUR ---
PT STOOD UP OFF BED AND ATTEMPTED TO LEAVE HOSTPITAL. PT RE-DIRECTED TO BED.
--- NOTE | 2021-09-10 03:56 | NUR ---
pt assisted to position for comfort. provided w x2 blankets. all needs met at this time.
--- NOTE | 2021-09-10 06:47 | NUR ---
Pt report given to CHAD DOMÍNGUEZ. Transfer of care at this time.
--- NOTE | 2021-09-10 08:11 | NUR ---
BREAKFAST PROVIDED, PT EATING.
[2021-09-10] MEDS ORDERED: LORazepam 2 MG/ML VIAL IM/IVP PRN (09:10)
[2021-09-10] MEDS ORDERED: MAG SULF 2000 MG/WATER PREMIX 50 ML IV PRN (09:10)
[2021-09-10] MEDS ORDERED: MORPHINE SULFATE 2 MG/ML SYR IVP PRN (09:10)
[2021-09-10] MEDS ORDERED: DOCUSATE SODIUM 100 MG GELCAP PO PRN (09:10)
[2021-09-10] MEDS ORDERED: ACETAMINOPHEN 325 MG TAB PO PRN (09:10)
[2021-09-10] MEDS ORDERED: POTASSIUM CHLORIDE 10 MEQ TABER PO PRN (09:10)
[2021-09-10] MEDS ORDERED: ZOLPIDEM 5 MG TAB PO PRN (09:10)
[2021-09-10] MEDS ORDERED: ONDANSETRON 4 MG/2 ML VIAL IM/IVP PRN (09:10)
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
--- NOTE | 2021-09-10 09:48 | NUR ---
Patient will be admitted to care of DR. PANG. Admited to TELE. Will go to room 7. Belongings list completed. Report to MARYBETH ERNST.
[2021-09-10 10:11] LABS: PROTHROMBIN TIME 10.2 secs (10.8-13.4)
[2021-09-10 10:14] VITALS: BP 193/103
[2021-09-10 10:14] LABS: CHOL/HDL RATIO 2.7 (1-4.5); THYROID STIMULATING HORMONE 1.48 uIU/mL (0.34-3.74)
--- NOTE | 2021-09-10 10:24 | NUR ---
Contacted Dr. Kee regarding HTN and need for prn HTN med. Also, Metoprolol daily med is not set to start until tomorrow. Received verbal order to start the Metoprolol today. I called the pharmacy to adjust start date. Per pharmacist she will do this now.
[2021-09-10] MEDS ORDERED: hydrALAZINE 20 MG/ML VIAL IVP PRN (10:25)
[2021-09-10] MEDS ORDERED: METOPROLOL SUCCINATE 50 MG TABER PO SCH (10:30)
--- NOTE | 2021-09-10 10:35 | NUR ---
Endorsed report to Gordo RUEDA in telemetry to transfer care of the patient and end my care. Patient is resting comfortably while echocardiogram is in progress, NSR on the monitor, no signs of acute distress noted. Sitter in close observation of patient. Will transfer patient when echo is complete.
--- NOTE | 2021-09-10 10:40 | NUR ---
RECEIVED PATIENT REPORT FROM ICU NURSE. PT WILL BE TRANSFERRED TO ROOM 113 AFTER ECHO IS COMPLETED
[2021-09-10 10:58] VITALS: BP 187/97
[2021-09-10 11:30] VITALS: BP 178/88
--- NOTE | 2021-09-10 11:30 | NUR ---
RECEIVED PATIENT FROM ICU NURSE VIA BED. PT ADMITTED FOR PSYCHOSIS, ESRD. PT IS AOX2, ABLE TO MAKE NEEDS KNOWN. RESPIRATIONS EVEN AND UNLABORED. ON ROOM AIR AND NO DISTRESS NOTED. SKIN IS WARM, DRY, AND INTACT. IV SITE ON RAC 20G SALINE LOCKED. INTACT AND PATENT. HAS LEFT TUNNELED HD CATHETER. HD SCHEDULE IS ,,S. ABD IS SOFT, FLAT, AND NON-DISTENDED. BOWEL SOUNDS ACTIVE IN ALL QUADRANTS. PT DENIES PAIN AT THE MOMENT. PT IS RIGHT BKA WITH PROSTHETIC LEG ATTACHED. PT AMBULATES WITH ASSISTANCE. PLAN OF CARE DISCUSSED. SAFETY PRECAUTIONS IN PLACE. CALL LIGHT WITHIN REACH. WILL CONTINUE TO MONITOR. Addendum: 09/10/21 at 1216 by Gordo Pham RN RN PT HAS A 5150 HOLD WITH 1:1 SITTER.
[2021-09-10] MEDS ORDERED: DEXTROSE 50% 50 ML SYR IVP PRN (12:05)
[2021-09-10] MEDS: GABAPENTIN 100 MG CAP PO SCH ×2 (12:20→17:25)
--- NOTE | 2021-09-10 12:25 | NUR ---
ALL SCHEDULED MEDS GIVEN. PT IS STABLE. NO DISTRESS NOTED. WILL CONTINUE TO MONITOR.
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
--- NOTE | 2021-09-10 15:25 | NUR ---
DC PLANNIN YRS OLD FEMALE PATIENT WAS ADMITTED FROM HOME WITH A DX OF PSYCHOSIS, ESRD. ON HOLD .PT HAS A HX OF SCHIZOPHRENIA , DM, HTN AND ESRD ON HEMODIALYSIS. DR DUTTA CONSULTED TO PLACE THE [facility] FOR DIALYSIS . ADMINISTERED HOME MEDS. CONSULTED WITH NEPHRO AND PSYCH. DC PER PER PT RESPOND TO THE TREATMENT. CM TO FOLLOW Addendum: 09/12/21 at 1634 by Bria Hagan RN DC PLANNING SPOKE WITH PATIENT STATED DOESN'T WANT TO GO TO SNF, CALLED PT'S DAUGHTER MICAH AT [phone] LEFT A MESSAGE. PSYCH TO DEBBIE DOMINGUEZ. CM TO FOLLOW
--- NOTE | 2021-09-10 15:36 | NUR ---
PATIENT HAS BEEN SCREENED AND CATEGORIZED MODERATE NUTRITION RISK. PATIENT WILL BE SEEN WITHIN 3-5 DAYS OF ADMISSION. DENISE SAUN[address]ERS [address]
--- NOTE | 2021-09-10 15:45 | NUR ---
ASSISTED PATIENT TO THE BATHROOM.
[2021-09-10 16:00] VITALS: BP 135/77
[2021-09-10 16:10] LABS: APPEARANCE,URINE SL CLOUDY (CLEAR); BILIRUBIN,URINE NEGATIVE (NEGATIVE); BLOOD, URINE 1+ (NEGATIVE); COLOR,URINE YELLOW (YELLOW); LEUKOCYTE ESTERASE ,URINE 1+ (NEGATIVE); NITRITE, URINE NEGATIVE (NEGATIVE); UGLUCOSE TRACE (NEGATIVE)
--- NOTE | 2021-09-10 16:24 | NUR ---
CONTACTED YANE FROM [employer] FOR NEW PSYCH CONSULTATION. NOTIFIED ME THAT THEY WILL CALL BACK WITH CALL TIME WITH PSYCH MD.
[2021-09-10 16:48] LABS: RBC,URINE NONE SEEN /HPF (0-5)
[2021-09-10] MEDS: BLOOD GLUCOSE MONITORING 1 DEV DEV FS SCH ×2 (17:25→20:57)
--- NOTE | 2021-09-10 19:39 | NUR ---
CONTACTED [facility] AND NOTIFIED THEM ABOUT DIALYSIS ORDER FOR TOMORROW.
--- NOTE | 2021-09-10 19:39 | NUR ---
ENDORSED TO VACUUM BOTTLE ASSEMBLER NURSE FOR CONTINUITY OF CARE. PT IS STABLE.
--- NOTE | 2021-09-10 19:40 | NUR ---
RECEIVED BEDSIDE REPORT FROM DAY SHIFT FOR CONTINUITY OF PATIENT CARE. PATIENT IS STABLE AND SLEEPING.
[2021-09-10 20:00] VITALS: BP 135/77
--- NOTE | 2021-09-10 21:15 | NUR ---
VIRTUAL CONSULTATION WITH SONIA FLORIAN.
[2021-09-10] MEDS: HYDROcodone/APAP 5/325 MG 1 TAB TAB PO PRN (21:32)
--- NOTE | 2021-09-10 21:32 | NUR ---
PT COMPLAINT OF HAVING BACK PAIN OF 6/10, NORCO PRN ADMINISTERED MD ORDERED.
--- NOTE | 2021-09-10 22:32 | NUR ---
PT DOES NOT COMPLAINT ANY BACK PAIN (LOWER BACK) ANYMORE. PT ASLEEP.
[2021-09-11] VITALS (7 sets, daily range): BP systolic 120–152; BP diastolic 54–80
--- NOTE | 2021-09-11 00:30 | NUR ---
PT ASLEEP. COOPERATIVE FOR VITAL SIGNS CHECKS. NO SOB OR DISTRESS. SAFETY MEASURES IN PLACE. CONTINUE MONITORING.
--- NOTE | 2021-09-11 02:00 | NUR ---
PT ASLEEP. NO SOB OR DISTRESS. SAFETY MEASURES IN PLACE. CONTINUE MONITORING.
[2021-09-11] MEDS: BLOOD GLUCOSE MONITORING 1 DEV DEV FS SCH ×4 (06:52→22:02)
--- NOTE | 2021-09-11 06:52 | NUR ---
BLOOD SUGAR CHECKED, RESULT 87. NO INSULIN COVERAGE NEEDED.
[2021-09-11 07:22] LABS: BASOPHILS % (AUTO) 0.4 % (0.0-2.0); EOSINOPHILS # (AUTO) 0.1 K/uL (0-0.4); EOSINOPHILS % (AUTO) 1.3 % (0.0-4.0); HEMATOCRIT 36.4 % (36-48); HEMOGLOBIN 11.6 g/dL (12.0-16.0); LYMPHOCYTES # (AUTO) 2.2 K/uL (2.5-16.5); MEAN CORPUSCULAR HEMOGLOBIN 27 pg (27-31); MEAN CORPUSCULAR HGB CONC 32 g/dL (33-37); MEAN CORPUSCULAR VOLUME 85.3 fL (80-94); MONOCYTES # (AUTO) 0.8 K/uL (0.8-1.0); MONOCYTES % (AUTO) 6.7 % (1.7-9.3); NEUTROPHILS # (AUTO) 8.1 K/uL (1.8-7.7); NEUTROPHILS % (AUTO) 71.6 % (42.2-75.2); PLATELET COUNT (AUTO) 252 K/uL (140-450); RED BLOOD CELL COUNT(AUTO) 4.26 MIL/uL (4.20-5.40); RED CELL DISTRIBUTION WIDTH 17.4 % (11.6-13.7); WHITE BLOOD COUNT (AUTO) 11.3 K/uL (4.8-10.8)
--- NOTE | 2021-09-11 07:30 | NUR ---
RECEIVED REPORT FROM FIRST ASSISTANT. AOX2, ABLE TO MAKE NEEDS KNOWN. RESPIRATIONS EVEN AND UNLABORED. ON ROOM AIR AND NO DISTRESS NOTED. SKIN IS WARM, DRY, AND INTACT. IV SITE ON RAC 20G SALINE LOCKED. INTACT AND PATENT. HAS LEFT TUNNELED HD CATHETER. PT DENIES PAIN AT THE MOMENT. PT IS RIGHT BKA WITH PROSTHETIC LEG ATTACHED. PT AMBULATES WITH ASSISTANCE. PLAN OF CARE DISCUSSED. SAFETY PRECAUTIONS IN PLACE. CALL LIGHT WITHIN REACH. WILL CONTINUE TO MONITOR.
--- NOTE | 2021-09-11 07:40 | NUR ---
ENDORSED TO THE MORNING NURSE FOR PT CONTINUITY OF CARE.
[2021-09-11 07:49] LABS: ANION GAP 15.4 (8-16); CARBON DIOXIDE 20.8 mmol/L (21-32); POTASSIUM 4.2 mmol/L (3.5-5.1)
[2021-09-11 08:00] LABS: MAGNESIUM 2.1 mg/dL (1.8-2.4); PHOSPHORUS 5.4 mg/dL (2.5-4.9)
[2021-09-11 08:03] LABS: CREATININE 5.3 mg/dL (0.6-1.3)
--- NOTE | 2021-09-11 09:05 | NUR ---
DUE MEDS GIVEN. TOLERATED WELL
[2021-09-11 09:06] LABS: T4 (THYROXINE) 9.8 ug/dL (4.5-12.0)
[2021-09-11] MEDS: HYDROcodone/APAP 5/325 MG 1 TAB TAB PO PRN ×2 (09:07→21:57)
[2021-09-11] MEDS: GABAPENTIN 100 MG CAP PO SCH ×3 (09:07→17:36)
[2021-09-11] MEDS: METOPROLOL SUCCINATE 50 MG TABER PO SCH (09:07)
--- NOTE | 2021-09-11 10:30 | NUR ---
WITH LOOSE BM, SAMI CARE DONE
[2021-09-11] MEDS: QUEtiapine FUMARATE 25 MG TAB PO SCH (21:58)
[2021-09-12 04:00] VITALS: BP 121/67
[2021-09-12] MEDS: BLOOD GLUCOSE MONITORING 1 DEV DEV FS SCH ×4 (06:51→22:02)
--- NOTE | 2021-09-12 06:51 | NUR ---
HANDOFF WITH MARYBETH NORTON. NOEMY MENDOZA RN
--- NOTE | 2021-09-12 07:29 | NUR ---
RECEIVED REPORT FROM NIGHTSHIFT RN. PT A/O X3. NO SOB OR RESPIRATORY DISTRESS. ON RA. RAC #20 SL. DENIES PAIN AT THIS TIME. SAFETY MEASURES IN PLACE. WILL CONTINUE TO MONITOR CLOSELY. PLAN FOR NEW DIALYSIS ACCESS. REPORT STATES DR. SALMERON ALREADY CONTACTED.
[2021-09-12 08:00] VITALS: BP 113/66
[2021-09-12 08:09] LABS: ANION GAP 14.3 (8-16); CARBON DIOXIDE 19.5 mmol/L (21-32); POTASSIUM 3.8 mmol/L (3.5-5.1)
[2021-09-12 08:15] LABS: CREATININE 4.3 mg/dL (0.6-1.3)
[2021-09-12] MEDS: GABAPENTIN 100 MG CAP PO SCH ×3 (08:45→18:06)
[2021-09-12 08:46] LABS: MAGNESIUM 1.8 mg/dL (1.8-2.4); PHOSPHORUS 4.2 mg/dL (2.5-4.9)
[2021-09-12] MEDS: METOPROLOL SUCCINATE 50 MG TABER PO SCH (08:47)
[2021-09-12] MEDS: HYDROcodone/APAP 5/325 MG 1 TAB TAB PO PRN ×2 (10:38→17:16)
[2021-09-12] MEDS: INSULIN LISPRO SLIDING SCALE 100 UNITS/ML VIAL SUBQ PRN ×2 (10:39→22:05)
[2021-09-12 12:00] VITALS: BP 110/59
--- NOTE | 2021-09-12 13:33 | NUR ---
PT ON TELECONFERENCE WITH PYCHIATRIC DR. MCMILLAN. STATES WILL SPEAK WITH LICENSED PROSTHETIST/ORTHOTIST REGARDING 5150 HOLD.
[2021-09-12 13:56] LABS: BASOPHILS # (AUTO) 0.1 K/uL (0.00-0.22); BASOPHILS % (AUTO) 0.5 % (0.0-2.0); EOSINOPHILS # (AUTO) 0.3 K/uL (0-0.4); EOSINOPHILS % (AUTO) 3.5 % (0.0-4.0); HEMATOCRIT 35.2 % (36-48); HEMOGLOBIN 11.2 g/dL (12.0-16.0); LYMPHOCYTES # (AUTO) 2.7 K/uL (2.5-16.5); LYMPHOCYTES % (AUTO) 27.3 % (20.5-51.1); MEAN CORPUSCULAR HEMOGLOBIN 27 pg (27-31); MEAN CORPUSCULAR HGB CONC 32 g/dL (33-37); MEAN CORPUSCULAR VOLUME 85.7 fL (80-94); MONOCYTES # (AUTO) 0.7 K/uL (0.8-1.0); MONOCYTES % (AUTO) 6.8 % (1.7-9.3); NEUTROPHILS # (AUTO) 6.1 K/uL (1.8-7.7); NEUTROPHILS % (AUTO) 61.9 % (42.2-75.2); PLATELET COUNT (AUTO) 193 K/uL (140-450); RED BLOOD CELL COUNT(AUTO) 4.11 MIL/uL (4.20-5.40); RED CELL DISTRIBUTION WIDTH 17.1 % (11.6-13.7); WHITE BLOOD COUNT (AUTO) 9.8 K/uL (4.8-10.8)
[2021-09-12 16:00] VITALS: BP 123/67
--- NOTE | 2021-09-12 19:21 | NUR ---
REPORT GIVEN TO NIGHTSHIFT NURSE FOR CONTINUITY OF CARE.
[2021-09-12 19:25] VITALS: BP 127/64
[2021-09-12] MEDS: QUEtiapine FUMARATE 25 MG TAB PO SCH (21:49)
[2021-09-13] VITALS: BP 145/79
[2021-09-13 04:00] VITALS: BP 129/72
[2021-09-13] MEDS: HYDROcodone/APAP 5/325 MG 1 TAB TAB PO PRN ×2 (04:18→12:04)
--- NOTE | 2021-09-13 04:44 | NUR ---
PAGE TO HEMODIALYSIS NURSE FOR PATIENT TREATMENT TODAY. NOEMY MENDOZA RN
[2021-09-13] MEDS: BLOOD GLUCOSE MONITORING 1 DEV DEV FS SCH ×2 (06:56→11:04)
--- NOTE | 2021-09-13 07:00 | NUR ---
HANDOFF WITH MARYBETH NORTON. NOEMY MENDOZA RN
--- NOTE | 2021-09-13 07:15 | NUR ---
RECEIVED REPORT FROM NIGHTSHIFT RN. PT AWAKE AND ALERT. PT STATING SHE HAS A "SHINDIG" TO GO TO AND WANTS TO GET DISCHARGED. EXPLAINED HD TODAY AND WILL F/U WITH MD. NO SOB OR RESPIRATORY DISTRESS. ON RA. DENIES HALLUCINATION/HEARING VOICES. PT CHANGED AND HYGIENIC CARE GIVEN. DENIES PAIN AT THIS TIME. SAFETY MEASURES IN PLACE. WILL MONITOR CLOSELY.
[2021-09-13 07:27] LABS: ANION GAP 12.4 (8-16); CARBON DIOXIDE 22.5 mmol/L (21-32); MAGNESIUM 2.1 mg/dL (1.8-2.4); PHOSPHORUS 5.1 mg/dL (2.5-4.9); POTASSIUM 3.9 mmol/L (3.5-5.1)
[2021-09-13 07:28] LABS: BASOPHILS # (AUTO) 0.1 K/uL (0.00-0.22); BASOPHILS % (AUTO) 0.5 % (0.0-2.0); EOSINOPHILS # (AUTO) 0.4 K/uL (0-0.4); EOSINOPHILS % (AUTO) 4.1 % (0.0-4.0); HEMATOCRIT 34.5 % (36-48); LYMPHOCYTES # (AUTO) 3.1 K/uL (2.5-16.5); LYMPHOCYTES % (AUTO) 29.5 % (20.5-51.1); MEAN CORPUSCULAR HEMOGLOBIN 27 pg (27-31); MEAN CORPUSCULAR HGB CONC 32 g/dL (33-37); MEAN CORPUSCULAR VOLUME 85.4 fL (80-94); MONOCYTES # (AUTO) 0.5 K/uL (0.8-1.0); MONOCYTES % (AUTO) 4.8 % (1.7-9.3); NEUTROPHILS # (AUTO) 6.5 K/uL (1.8-7.7); NEUTROPHILS % (AUTO) 61.1 % (42.2-75.2); PLATELET COUNT (AUTO) 197 K/uL (140-450); RED BLOOD CELL COUNT(AUTO) 4.04 MIL/uL (4.20-5.40); RED CELL DISTRIBUTION WIDTH 17.1 % (11.6-13.7); WHITE BLOOD COUNT (AUTO) 10.6 K/uL (4.8-10.8)
[2021-09-13 08:00] VITALS: BP 91/55
[2021-09-13] MEDS ORDERED: QUET25TA PO (08:55)
[2021-09-13] MEDS: GABAPENTIN 100 MG CAP PO SCH ×2 (09:00→12:50)
[2021-09-13] MEDS: METOPROLOL SUCCINATE 50 MG TABER PO SCH (09:00)
--- NOTE | 2021-09-13 09:04 | NUR ---
MEDS HELD. DIALYSIS AT BEDSIDE. Addendum: 09/13/21 at 1119 by Agency Nurse Kalia, MARYBETH RUEDA MEDS HELD. DIALYSIS WILL BE AT BEDSIDE.
--- NOTE | 2021-09-13 09:23 | NUR ---
SPOKE TO YANE FROM DR. MCMILLAN OFFICE, PER DR. MCMILLAN PATIENT IS CLEARED FROM PSYCH STANDPOINT. DR. BORGES MADE AWARE.
--- NOTE | 2021-09-13 09:26 | NUR ---
09/13/21 RD INITIAL ASSESSMENT COMPLETED PLEASE REFER TO NUTRITION ASSESSMENT UNDER CARE ACTIVITY FOR ESTIMATED NUTRITIONAL NEEDS. RD RECOMMENDATIONS: 1. CONTINUE RENAL STANDARD DIET TOLERATED 2. CONSULT RDN PRN. 3. RD WILL F/U 3-5 DAYS; MODERATE RISK. WIL GAVIRIA MS, RDN
[2021-09-13 12:00] VITALS: BP 136/75
--- NOTE | 2021-09-13 12:30 | NUR ---
PT CHANGED WITH HYGIENIC CARE. HEMODIALYSIS AT BEDSIDE.
[2021-09-13 12:52] VITALS: BP 136/75
[2021-09-13] MEDS ORDERED: ALTEPLASE 2 MG VIAL MC SCH (13:25)
--- NOTE | 2021-09-13 13:25 | NUR ---
HD NURSE CONTACTED DR. SHARMA FOR ALTEPLASE ORDERS. PT STABLE AND ASLEEP.
--- NOTE | 2021-09-13 15:20 | NUR ---
HEMODIALYSIS COMPLETED. 2L OUT. 97.7, 61, 16, 122/61, 98%. PT STABLE. DISCHARGE INSTRUCTIONS GIVEN. PT VERBALIZED UNDERSTANDING. CONTACTED DAUGHTER REGARDING DISCHARGE INSTRUCTIONS, VERBALIZED UNDERSTANDING. DAUGHTER STATES WILL BRING CLOTHING FOR PT TO CHANGE IN. IV DISCONTINUED. CATHETER INTACT. NO ACTIVE BLEEDING. AWAITING DAUGHTER TO ARRIVE.
--- NOTE | 2021-09-13 16:11 | NUR ---
CLOTHES BROUGHT TO [employer] AND PICKED UP. PT CHANGED AND WHEELED OUT VIA WHEELCHAIR.
== END 2021-09-13 16:10 | disposition home or self-care (01) | DRG 469 ==
LOC: MED 00:35 → MTU 03:22 → MIC 07:52 → MTU 13:22
PROC: 5A1D70Z Performance of Urinary Filtration, Intermittent, Less than 6 Hours Per Day (ICD-10-PCS; principal; 2021-09-11)
PROC: 5A1D70Z Performance of Urinary Filtration, Intermittent, Less than 6 Hours Per Day (ICD-10-PCS; 2021-09-13)
DX: N17.0 Acute kidney failure with tubular necrosis (principal); G92.9 Unspecified toxic encephalopathy; I13.2 Hypertensive heart and chronic kidney disease with heart failure and with stage 5 chronic kidney disease, or end stage renal disease; D63.1 Anemia in chronic kidney disease; F29 Unspecified psychosis not due to a substance or known physiological condition; E11.22 Type 2 diabetes mellitus with diabetic chronic kidney disease; E11.40 Type 2 diabetes mellitus with diabetic neuropathy, unspecified; D64.9 Anemia, unspecified; N18.6 End stage renal disease; F15.90 Other stimulant use, unspecified, uncomplicated; F20.9 Schizophrenia, unspecified; N39.0 Urinary tract infection, site not specified; I50.30 Unspecified diastolic (congestive) heart failure; Z20.822 Contact with and (suspected) exposure to COVID-19; Z99.2 Dependence on renal dialysis; Z89.511 Acquired absence of right leg below knee; Z79.2 Long term (current) use of antibiotics; Z79.899 Other long term (current) drug therapy; Z91.14 Patient's other noncompliance with medication regimen
CPT/HCPCS: 36415; 80048; 80053; 80305; 81001; 82140; 82150; 82948; 83036; 83690; 83735; 83880; 84100; 84134; 84436; 84443; 85025; 85610; 85730; 87081; 87086; 87635-QW; 96374; 99285; G0480; G0482; J0360; J0696; J1644; J1815; J2270; J2997; J7060

== ENCOUNTER 2021-09-30 10:56 | Emergency (ER) | payer MEDICAID ==
[~2021-09-30] VITALS: Ht 167.6 cm; Wt 99.8 kg
[~2021-09-30 10:56] MED LIST changes: -AMLO10TA PO; -AMOX-999 PO; -CEPH-588 PO; +QUET25TA PO
--- NOTE | 2021-09-30 11:05 | NUR ---
PATIENT WAS TAKEN TO ROOM 7 VIA WHEELCHAIR
[2021-09-30 11:10] VITALS: BP 151/96
--- NOTE | 2021-09-30 12:06 | NUR ---
RADIOLOGY AT BEDSIDE
--- NOTE | 2021-09-30 12:09 | NUR ---
OBTAINED PONCHO SPECIMEN, WALKED TO LAB. HANDED TO CPT MARY
--- NOTE | 2021-09-30 12:27 | NUR ---
LAB AT BEDSIDE
[2021-09-30 12:38] LABS: BASOPHILS # (AUTO) 0.1 K/uL (0.00-0.22); BASOPHILS % (AUTO) 0.7 % (0.0-2.0); EOSINOPHILS # (AUTO) 0.1 K/uL (0-0.4); EOSINOPHILS % (AUTO) 0.7 % (0.0-4.0); HEMATOCRIT 33.8 % (36-48); HEMOGLOBIN 10.9 g/dL (12.0-16.0); LYMPHOCYTES # (AUTO) 1.9 K/uL (2.5-16.5); LYMPHOCYTES % (AUTO) 21.9 % (20.5-51.1); MEAN CORPUSCULAR HEMOGLOBIN 28 pg (27-31); MEAN CORPUSCULAR HGB CONC 32 g/dL (33-37); MEAN CORPUSCULAR VOLUME 85.3 fL (80-94); MONOCYTES # (AUTO) 0.7 K/uL (0.8-1.0); MONOCYTES % (AUTO) 7.6 % (1.7-9.3); NEUTROPHILS # (AUTO) 5.9 K/uL (1.8-7.7); NEUTROPHILS % (AUTO) 69.1 % (42.2-75.2); PLATELET COUNT (AUTO) 267 K/uL (140-450); RED BLOOD CELL COUNT(AUTO) 3.96 MIL/uL (4.20-5.40); WHITE BLOOD COUNT (AUTO) 8.6 K/uL (4.8-10.8)
[2021-09-30 12:59] LABS: ALBUMIN 3.5 g/dL (3.4-5.0); ANION GAP 15.4 (8-16); CARBON DIOXIDE 23.1 mmol/L (21-32); POTASSIUM 3.5 mmol/L (3.5-5.1); TOTAL BILIRUBIN 0.4 mg/dL (0.0-1.0)
[2021-09-30 13:01] LABS: CREATININE 5.6 mg/dL (0.6-1.3)
[2021-09-30 14:08] VITALS: BP 161/68
--- NOTE | 2021-09-30 14:43 | NUR ---
URINE OBTAINED, WALKED TO LAB. HANDED TO CPT. MINA
[2021-09-30] MEDS ORDERED: ACETAMINOPHEN EXTRA STRENGTH 500 MG TAB PO ONE (15:10)
--- NOTE | 2021-09-30 16:22 | NUR ---
Patient discharged with v/s stable. Written and verbal after care instructions given and explained. Patient verbalized understanding. Ambulatory with steady gait. All questions addressed prior to discharge. Advised to follow up with PMD.
--- NOTE | 2021-09-30 16:23 | NUR ---
Chart checked and completed. The patient's care was reviewed and supervised by Princess Smiley RN.
[2021-10-11] MEDS ORDERED: NAPR-1871 PO (10:29)
[2021-10-13] MEDS ORDERED: NIFE60TA39 PO (10:47)
[2021-10-13] MEDS ORDERED: ASPI-1856 PO (10:47)
== END 2021-09-30 16:22 | disposition home or self-care (01) ==
LOC: MED 10:56
DX: S09.90XA Unspecified injury of head, initial encounter (principal); Z20.822 Contact with and (suspected) exposure to COVID-19; R53.1 Weakness; M79.10 Myalgia, unspecified site; R42 Dizziness and giddiness; R11.10 Vomiting, unspecified; E11.22 Type 2 diabetes mellitus with diabetic chronic kidney disease; I12.9 Hypertensive chronic kidney disease with stage 1 through stage 4 chronic kidney disease, or unspecified chronic kidney disease; N18.9 Chronic kidney disease, unspecified; Z99.2 Dependence on renal dialysis; F17.210 Nicotine dependence, cigarettes, uncomplicated; Z71.6 Tobacco abuse counseling; X58.XXXA Exposure to other specified factors, initial encounter; Y93.89 Activity, other specified; Y92.89 Other specified places as the place of occurrence of the external cause; Y99.8 Other external cause status
CPT/HCPCS: 36415; 70450; 71045; 80053; 81002; 81025; 82140; 85025; 87040; 87426; 93005; 99285; G0482; Q0092; 99406

== ENCOUNTER 2021-10-22 03:30 | Emergency (ER) | payer MEDICAID ==
[~2021-10-22] VITALS: Ht 167.6 cm; Wt 99.3 kg
[~2021-10-22 03:30] MED LIST changes: +ASPI-1856 PO; +NIFE60TA39 PO
--- NOTE | 2021-10-22 03:30 | NUR ---
PT TREMAINE BLS. TAKEN TO BED 7
[2021-10-22 03:35] VITALS: BP 182/102
--- NOTE | 2021-10-22 03:36 | NUR ---
MD HAGAN AT BEDSIDE ASSESSING PATIENT
--- NOTE | 2021-10-22 03:44 | NUR ---
PATIENT AMBULATED TO THE AND BACK TO BED 7 WITH WALKER
[2021-10-22] MEDS ORDERED: LORazepam 1 MG TAB PO ONE (03:50)
[2021-10-22] MEDS ORDERED: CLONIDINE HYDROCHLORIDE 0.1 MG TAB PO ONE (03:50)
--- NOTE | 2021-10-22 03:50 | NUR ---
PATIENT BP TAKEN 204/93, RECHECKED 205/103. MD HAGAN MADE AWARE. ORDERS CARRIED OUT
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
--- NOTE | 2021-10-22 04:20 | NUR ---
BP TAKEN AND DECREASED TO 178/89. PATIENT NO LONGER ANXIOUS AT THIS TIME. AWARE.
[2021-10-22] MEDS ORDERED: NITR100C7 PO (04:25)
--- NOTE | 2021-10-22 04:25 | NUR ---
MD HAGAN AT BEDSIDE
--- NOTE | 2021-10-22 04:38 | NUR ---
Patient discharged with bp 178/89, aware and comfortable discharging. Written and verbal after care instructions given and explained. Patient alert, oriented and verbalized understanding of instructions. Ambulatory with walker and steady gait. All questions addressed prior to discharge. ID band removed. Patient advised to follow up with PMD. Rx of Nitrofurantoin given.
--- NOTE | 2021-10-22 04:38 | NUR ---
The patient's care was reviewed and supervised by Diamond Jarrett RN.
[2021-10-22 04:44] VITALS: BP 178/89
--- NOTE | 2021-10-22 05:20 | NUR ---
CALLED DELI CLERK TO ARRANGE TRANSPORTATION
== END 2021-10-22 04:38 | disposition home or self-care (01) ==
LOC: MED 03:30
DX: F41.9 Anxiety disorder, unspecified (principal); E11.22 Type 2 diabetes mellitus with diabetic chronic kidney disease; I12.0 Hypertensive chronic kidney disease with stage 5 chronic kidney disease or end stage renal disease; N18.6 End stage renal disease; Z99.2 Dependence on renal dialysis; Z89.611 Acquired absence of right leg above knee; F17.200 Nicotine dependence, unspecified, uncomplicated; Z79.2 Long term (current) use of antibiotics; Z79.82 Long term (current) use of aspirin; Z79.899 Other long term (current) drug therapy
CPT/HCPCS: 99283

== ENCOUNTER 2021-10-29 23:56 | Inpatient (IN) | payer MEDICAID ==
[~2021-10-29] VITALS: Ht 162.6 cm; Wt 96.7 kg
[~2021-10-29 23:56] MED LIST changes: +NITR100C7 PO
[2021-10-30 00:21] VITALS: BP 177/124
[2021-10-30] MEDS ORDERED: diphenhydrAMINE 50 MG/ML VIAL IM ONE (00:25)
[2021-10-30] MEDS ORDERED: OLANZapine 10 MG VIAL IM ONE (00:25)
[2021-10-30] MEDS ORDERED: LORazepam 2 MG/ML VIAL IM ONE (00:25)
--- NOTE | 2021-10-30 00:34 | NUR ---
Dr. Chin examining patient.
--- NOTE | 2021-10-30 00:46 | NUR ---
PT CALLED [place] [employer] FROM [place]. [employer] CALLED TO VERIFY, THEY ARE SENDING AN OFFICER TO EVALUATE PT.
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
--- NOTE | 2021-10-30 00:52 | NUR ---
KNITTING SUPERVISOR OBTAINING BLOOD SAMPLE
[2021-10-30 01:04] LABS: BASOPHILS # (AUTO) 0.1 K/uL (0.00-0.22); BASOPHILS % (AUTO) 1.6 % (0.0-2.0); EOSINOPHILS # (AUTO) 0.2 K/uL (0-0.4); EOSINOPHILS % (AUTO) 2.5 % (0.0-4.0); HEMATOCRIT 37.4 % (36-48); HEMOGLOBIN 12.1 g/dL (12.0-16.0); LYMPHOCYTES # (AUTO) 1.7 K/uL (2.5-16.5); LYMPHOCYTES % (AUTO) 28.3 % (20.5-51.1); MEAN CORPUSCULAR HEMOGLOBIN 28 pg (27-31); MEAN CORPUSCULAR HGB CONC 32 g/dL (33-37); MEAN CORPUSCULAR VOLUME 85.4 fL (80-94); MONOCYTES # (AUTO) 0.4 K/uL (0.8-1.0); MONOCYTES % (AUTO) 7.1 % (1.7-9.3); NEUTROPHILS # (AUTO) 3.7 K/uL (1.8-7.7); NEUTROPHILS % (AUTO) 60.5 % (42.2-75.2); PLATELET COUNT (AUTO) 273 K/uL (140-450); RED BLOOD CELL COUNT(AUTO) 4.38 MIL/uL (4.20-5.40); WHITE BLOOD COUNT (AUTO) 6.1 K/uL (4.8-10.8)
--- NOTE | 2021-10-30 01:16 | NUR ---
PT PLACED ON 5150 HOLD BY JOSE ANGEL ABARCA
[2021-10-30 01:28] LABS: ALBUMIN 3.6 g/dL (3.4-5.0); ANION GAP 10.6 (8-16); ASPARTATE AMINOTRANSFERASE 17 U/L (15-37); CARBON DIOXIDE 30.1 mmol/L (21-32); CHLORIDE 102 mmol/L (98-107); CREATININE 3.9 mg/dL (0.6-1.3); GFR ARICAN-AMERICAN 15 mL/min (>90); GLUCOSE 124 mg/dL (74-106); POTASSIUM 3.7 mmol/L (3.5-5.1); SODIUM SERUM 139 mmol/L (136-145); TOTAL BILIRUBIN 0.3 mg/dL (0.0-1.0); UREA NITROGEN, BLOOD 27 mg/dL (7-18)
--- NOTE | 2021-10-30 01:33 | NUR ---
PT TAKEN TO BED 5
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
--- NOTE | 2021-10-30 04:04 | NUR ---
RESTING IN BED WITH EYES CLOSED, RESPIRATIONS REGULAR AND UNLABORED
--- NOTE | 2021-10-30 06:05 | NUR ---
0600 RESTING IN BED WITH EYES CLOSED. EQUAL CHEST RISE AND FALL, SIDE RAILS UP
--- NOTE | 2021-10-30 07:17 | NUR ---
Received report from MARYBETH Page for transfer of care.
[2021-10-30 07:58] LABS: BARBITURATE, URINE NEGATIVE ng/ml (NEG <=200); BENZODIAZEPINE, URINE NEGATIVE ng/mL (NEG <=200); CANNABINOID, URINE NEGATIVE ng/mL (NEG <=50); COCAINE, URINE NEGATIVE ng/mL (NEG <=300); OPIATE, URINE NEGATIVE ng/mL (NEG <=2000); PHENCYCLIDINE SCREEN,URINE NEGATIVE ng/mL (NEG <=25)
--- NOTE | 2021-10-30 08:00 | NUR ---
OFFERED BREAKFAST TRAY, PATIENT DECLINED BREAKFAST AT THIS MOMENT. WILL LEAVE BREAKFAST TRAY AT BEDSIDE.
--- NOTE | 2021-10-30 10:50 | NUR ---
OBTAINED PONCHO AND PCR SPECIMEN HANDED TO CURRICULUM SUPERVISOR AT BEDSIDE.
--- NOTE | 2021-10-30 11:45 | NUR ---
PT BEING EVALUATED BY TELEPSYCH AT THIS TIME
--- NOTE | 2021-10-30 13:00 | NUR ---
PATIENT WAS OFFERED HER LUNCH TRAY, PATIENT DECLINED FOOD. LUNCH TRAY WAS LEFT AT BEDSIDE.
--- NOTE | 2021-10-30 14:15 | NUR ---
PATIENT WAS ASSISTED TO THE RESTROOM. PATIENT AMBULATED WITH WALKER.
--- NOTE | 2021-10-30 14:44 | NUR ---
Packet fax to [facility]. S/W Princess
--- NOTE | 2021-10-30 14:45 | NUR ---
DR. MURPHY AT BEDSIDE EVALUATING PATIENT.
--- NOTE | 2021-10-30 15:30 | NUR ---
PATIENT IS LAYING IN BED. ALL NEEDS MET. PATIENT ASSISTED TO THE RESTROOM NEEDED. SI PRECAUTIONS MAINTAINED.
--- NOTE | 2021-10-30 17:40 | NUR ---
PATIENT IS SITTING UP ON BED, EATING FOOD.
--- NOTE | 2021-10-30 17:45 | NUR ---
PATIENT WANTED HER DAUGHTER, MICAH, NOTIFIED OF HER HOSPITALIZATION. DAUGHTER WAS MADE AWARE.
[2021-10-30] MEDS ORDERED: ACETAMINOPHEN 325 MG TAB PO ONE (18:20)
--- NOTE | 2021-10-30 18:42 | NUR ---
PATIENT OFFERED HER DINNER TRAY. PATIENT EATING AT BEDSIDE.
--- NOTE | 2021-10-30 19:20 | NUR ---
Pt report given to CHAD BOND. Transfer of care at this time.
--- NOTE | 2021-10-30 19:30 | NUR ---
PATIENT AMBULATED TO THE RESTROOM WITH WALKER AND BACK TO BED 5
[2021-10-30] MEDS ORDERED: cephALEXin 500 MG CAP PO ONE (20:00)
[2021-10-30] MEDS ORDERED: PHENAZOPYRIDINE 100 MG TAB PO ONE (20:00)
[2021-10-30 20:05] LABS: BILIRUBIN,URINE NEGATIVE (NEGATIVE); BLOOD, URINE TRACE-I (NEGATIVE); COLOR,URINE YELLOW (YELLOW); LEUKOCYTE ESTERASE ,URINE 3+ (NEGATIVE); NITRITE, URINE NEGATIVE (NEGATIVE); UGLUCOSE TRACE (NEGATIVE)
[2021-10-30 20:07] LABS: APPEARANCE,URINE HAZY (CLEAR)
[2021-10-30 20:22] LABS: RBC,URINE 0-5 /HPF (0-5); WBC,URINE TOO MANY TO COUNT /HPF (0-5)
[2021-10-30] MEDS: OLANZapine 5 MG ODT PO SCH (20:42)
--- NOTE | 2021-10-30 20:50 | NUR ---
PATIENT UNABLE TO PROVIDE URINE FOR LAB AT THIS TIME
--- NOTE | 2021-10-30 21:11 | NUR ---
Packet fax to the following facilities [facility] JOSE Rossi-not able to medically accommodate HAROLDO Higginbotham of [facility]
--- NOTE | 2021-10-30 23:00 | NUR ---
PROVIDED SAMI CARE TO PATIENT. PLACED IN NEW GOWN AND SHEETS. PROVIDED NEW SOCKS FOR PATIENT. PATIENT SIDE RAILS UP FOR SAFETY. BED LOW AND LOCKED. ALL NEEDS MET AT THIS TIME.
[2021-10-31] MEDS ORDERED: SODIUM PHOS / POTASSIUM PHOS 1 PKT PDR PO PRN (00:20)
[2021-10-31] MEDS ORDERED: MAGNESIUM OXIDE 400 MG TAB PO PRN (00:20)
[2021-10-31] MEDS ORDERED: POTASSIUM CHLORIDE 10 MEQ TABER PO PRN (00:20)
[2021-10-31] MEDS ORDERED: ACETAMINOPHEN 325 MG TAB PO PRN (00:20)
[2021-10-31] MEDS ORDERED: MORPHINE SULFATE 2 MG/ML SYR IVP PRN (00:20)
[2021-10-31] MEDS ORDERED: ONDANSETRON 4 MG/2 ML VIAL IM/IVP PRN (00:20)
[2021-10-31] MEDS ORDERED: DOCUSATE SODIUM 100 MG GELCAP PO PRN (00:20)
--- NOTE | 2021-10-31 02:00 | NUR ---
PATIENT SLEEPING AT THIS TIME. RR APPEAR TO BE EVEN AND UNLABORED. BED LOW AND LOCKED. SIDE RAILS UP JARED FOR SAFETY
--- NOTE | 2021-10-31 04:20 | NUR ---
PATIENT SLEEPING AT THIS TIME. RR APPEAR TO BE EVEN AND UNLABORED. BED LOW AND LOCKED. SIDE RAILS UP JARED FOR SAFETY
--- NOTE | 2021-10-31 06:07 | NUR ---
Patient will be admitted to care of Humphrey Glaser. Admited to Med Surg. Will go to room ICU Bed 5. Belongings list completed. Report to MARYBETH Sánchez. Transfer of care.
--- NOTE | 2021-10-31 06:08 | NUR ---
PT MOVED TO ICU DEPT
[2021-10-31 06:15] VITALS: BP 162/83
--- NOTE | 2021-10-31 06:15 | NUR ---
RECEIVED PT FROM ER VIA GURNEY; PT ABLE TO TRANSFER TO BED WITH MINIMAL ASSISTANCE.PT AWAKE; ORIENTED X3. SR NOTED ON MONITOR.PT ON RENAL DIET.DENIES N/V.DENIES PAIN.ABLE TO VOID FREELY.FALL PRECAUTION IN PLACE. W/LT CHEST DIALYSIS PORT NOTED INTACT.W/RT BKA ALSO NOTED.
--- NOTE | 2021-10-31 07:19 | NUR ---
REPORT GIVEN TO TARIK RUEDA FOR CONTINUITY OF CARE.PT ASLEEP.NO SOB ON ROOM AIR.STILL NO IV, MESSAGE SENT TO DR HOPSON IF OK FOR PT NOT TO HAVE IV ACCESS.TARIK RUEDA AWARE
--- NOTE | 2021-10-31 07:30 | NUR ---
RECEIVED REPORT FROM LIFE INSURANCE SPECIALIST. PT IN BED WITH HOB ELEVATED. AOX4 IN NO APPARENT ACUTE DISTRESS ON RA. NO C/O PAIN. WITH RIGHT CHEST HD PORT. SKIN INTACT WITH RIGHT BKA. ALL SAFETY MEASURES IN PLACE, CALL LIGHT WITHIN REACH, WILL CONTINUE TO CLOSELY MONITOR AND FOLLOW POC.
[2021-10-31 07:35] LABS: BASOPHILS # (AUTO) 0.1 K/uL (0.00-0.22); BASOPHILS % (AUTO) 1.1 % (0.0-2.0); EOSINOPHILS # (AUTO) 0.2 K/uL (0-0.4); EOSINOPHILS % (AUTO) 2.3 % (0.0-4.0); HEMATOCRIT 34.4 % (36-48); HEMOGLOBIN 11.1 g/dL (12.0-16.0); LYMPHOCYTES # (AUTO) 2.7 K/uL (2.5-16.5); LYMPHOCYTES % (AUTO) 34.6 % (20.5-51.1); MEAN CORPUSCULAR HEMOGLOBIN 28 pg (27-31); MEAN CORPUSCULAR HGB CONC 32 g/dL (33-37); MEAN CORPUSCULAR VOLUME 86.6 fL (80-94); MONOCYTES # (AUTO) 0.6 K/uL (0.8-1.0); MONOCYTES % (AUTO) 7.5 % (1.7-9.3); NEUTROPHILS # (AUTO) 4.3 K/uL (1.8-7.7); NEUTROPHILS % (AUTO) 54.5 % (42.2-75.2); PLATELET COUNT (AUTO) 265 K/uL (140-450); RED BLOOD CELL COUNT(AUTO) 3.98 MIL/uL (4.20-5.40); RED CELL DISTRIBUTION WIDTH 17.4 % (11.6-13.7); WHITE BLOOD COUNT (AUTO) 7.9 K/uL (4.8-10.8)
[2021-10-31 07:38] LABS: ANION GAP 12.3 (8-16); CARBON DIOXIDE 26.5 mmol/L (21-32); POTASSIUM 3.8 mmol/L (3.5-5.1)
[2021-10-31 07:51] LABS: CREATININE 4.6 mg/dL (0.6-1.3)
--- NOTE | 2021-10-31 08:39 | NUR ---
PATIENT HAS BEEN SCREENED AND CATEGORIZED MODERATE NUTRITION RISK. PATIENT WILL BE SEEN WITHIN 3-5 DAYS OF ADMISSION. DENISE SAUN[address]ERS [address]
[2021-10-31] MEDS: NIFEdipine 60 MG TABER PO SCH (09:02)
[2021-10-31] MEDS: ECOTRIN 81 MG TABEC PO SCH (09:08)
[2021-10-31] MEDS: GABAPENTIN 300 MG CAP PO SCH (09:08)
[2021-10-31] MEDS: OLANZapine 5 MG ODT PO SCH ×2 (09:09→20:35)
[2021-10-31] MEDS: PANTOPRAZOLE 40 MG TABEC PO SCH (09:09)
[2021-10-31] MEDS: METOPROLOL SUCCINATE 50 MG TABER PO SCH (09:09)
--- NOTE | 2021-10-31 09:15 | NUR ---
DUE MEDS GIVEN. TOLERATED WELL
--- NOTE | 2021-10-31 09:30 | NUR ---
CALLED DIALYSIS NURSE [facility], NOTIFIED ABOUT DIALYSIS ORDER
[2021-10-31 09:34] VITALS: BP 164/78
--- NOTE | 2021-10-31 10:50 | NUR ---
SEEN AND EXAMINED BY DR HOPSON. Addendum: 10/31/21 at 1212 by Paras Willoughby RN MADE DR HOPSON AWARE THAT PT DOES NOT HAVE PERIPHERAL IV. OK FOR PT TO HAVE NO IV FOR NOW
[2021-10-31] MEDS: HYDROcodone/APAP 5/325 MG 1 TAB TAB PO PRN ×2 (11:00→17:37)
--- NOTE | 2021-10-31 13:45 | NUR ---
PAGED DR RAMIREZ'S OFFICE FOR PSYCH EVAL, THEY WILL CALL BACK
[2021-10-31 16:00] VITALS: BP 116/56
--- NOTE | 2021-10-31 16:10 | NUR ---
PSYCH CONSULT: CONNSULTED DR. BRYANT FOR THE 5150 HOLD. AFTER DISCUSSION WITH PATIENT DR. BRYANT NEW ORDERS RECEIVED: D/C 5150 HOLD CONTINUE ZYPREXA (OLANZAPINE) AT HOME FOLLOW UP WITH OUT PATIENT PSYCHIATRIST IN 1 WEEK.
--- NOTE | 2021-10-31 16:39 | NUR ---
ASSUMED CARE FOR PATIENT PRIMARY NURSE REASSIGNED. PATIENT SI RESTING IN BED WITH VSS. PATIENT DOES NOT WANT CONTINIOUS PULSE OXIMETRY MONITOR ON HER FINGER AND STATES SHE WILL REMOVE IT ONCE WE LEAVE HER BEDSIDE. PATIENT IS CURRENTLY RECEIVING DIALYSIS.
[2021-10-31] MEDS ORDERED: OLAN5ODT9 PO (16:55)
[2021-10-31] MEDS ORDERED: LEVO-315 PO (16:55)
[2021-10-31 17:00] VITALS: BP 138/51
[2021-10-31 18:00] VITALS: BP 129/68
--- NOTE | 2021-10-31 18:00 | NUR ---
DIALYSIS COMPLETE. 2L TAKEN OUT
--- NOTE | 2021-10-31 20:06 | NUR ---
RECEIVED REPORT FROM DAY SHIFT. PT IN BED WITH HOB ELEVATED. AOX4 IN NO APPARENT ACUTE DISTRESS ON RA. NO C/O PAIN. WITH RIGHT CHEST HD PORT. SKIN INTACT WITH RIGHT BKA. PATIENT HAD HD TODAY (2 LITERS OF FLUID REMOVED); 5150 ORDERS DISCONTINUED, PLAN FOR DISCHARGE ON WEDNESDAY. PATIENT RECEIVED PRN NORCO AT 1737, NOW RESTING COMFORTABLY. PATIENT TO CONTINUE ZYPREXA, FOLLOW UP WITH OUTPATIENT PSYCH, AND CONTINUE CURRENT HD SCHEDULE. ALL SAFETY MEASURES IN PLACE, CALL LIGHT WITHIN REACH, WILL CONTINUE TO CLOSELY MONITOR AND FOLLOW POC
[2021-10-31] MEDS ORDERED: QUEtiapine FUMARATE 25 MG TAB PO SCH (21:00)
[2021-10-31 23:34] LABS: MAGNESIUM 2.1 mg/dL (1.8-2.4); PHOSPHORUS 5.8 mg/dL (2.5-4.9)
[2021-11-01] MEDS ORDERED: levoFLOXacin 750 MG TAB PO SCH
[2021-11-01] MEDS: HYDROcodone/APAP 5/325 MG 1 TAB TAB PO PRN (00:16)
[2021-11-01 00:23] VITALS: BP 134/64
--- NOTE | 2021-11-01 03:54 | NUR ---
PATIENT SLEEPING COMFORTABLY IN BED, DOES NOT APPEAR TO BE IN DISTRESS. PROVIDED EXTRA BLANKETS REQUESTED. WILL CONTINUE TO MONITOR. MNURMS2
--- NOTE | 2021-11-01 06:03 | NUR ---
PATIENT REMAINS ASLEEP; NO SIGNS OF ACUTE DISTRESS OR SHORTNESS OF BREATH. WILL CONTINUE TO MONITOR PATIENT.
[2021-11-01 06:25] LABS: BASOPHILS % (AUTO) 0.5 % (0.0-2.0); EOSINOPHILS # (AUTO) 0.2 K/uL (0-0.4); EOSINOPHILS % (AUTO) 2.7 % (0.0-4.0); HEMATOCRIT 33.1 % (36-48); HEMOGLOBIN 10.7 g/dL (12.0-16.0); LYMPHOCYTES # (AUTO) 1.9 K/uL (2.5-16.5); LYMPHOCYTES % (AUTO) 27.9 % (20.5-51.1); MEAN CORPUSCULAR HEMOGLOBIN 28 pg (27-31); MEAN CORPUSCULAR HGB CONC 32 g/dL (33-37); MEAN CORPUSCULAR VOLUME 86.3 fL (80-94); MONOCYTES # (AUTO) 0.4 K/uL (0.8-1.0); NEUTROPHILS # (AUTO) 4.2 K/uL (1.8-7.7); NEUTROPHILS % (AUTO) 62.9 % (42.2-75.2); PLATELET COUNT (AUTO) 238 K/uL (140-450); RED BLOOD CELL COUNT(AUTO) 3.84 MIL/uL (4.20-5.40); RED CELL DISTRIBUTION WIDTH 17.2 % (11.6-13.7); WHITE BLOOD COUNT (AUTO) 6.6 K/uL (4.8-10.8)
[2021-11-01 06:47] LABS: ANION GAP 11.3 (8-16); CARBON DIOXIDE 25.8 mmol/L (21-32); CREATININE 3.6 mg/dL (0.6-1.3); POTASSIUM 4.1 mmol/L (3.5-5.1)
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
--- NOTE | 2021-11-01 07:30 | NUR ---
RECEIVED REPORT FROM NIGHT NURSE, PT. IS AWAKE AND ALERT. SKIN DRY AND WARM TO TOUCH,SHE HAS NO IV ACCESS . HAS DIALYSIS ACCESS ON RT CHEST WALL.
--- NOTE | 2021-11-01 08:00 | NUR ---
AWAKE ALERT SELF FEED BREAKFAST NO COMPLAIN.
[2021-11-01] MEDS: ECOTRIN 81 MG TABEC PO SCH (08:19)
[2021-11-01] MEDS: GABAPENTIN 300 MG CAP PO SCH (08:19)
[2021-11-01] MEDS: NIFEdipine 60 MG TABER PO SCH (08:19)
[2021-11-01] MEDS: PANTOPRAZOLE 40 MG TABEC PO SCH (08:20)
[2021-11-01] MEDS: METOPROLOL SUCCINATE 50 MG TABER PO SCH (08:20)
[2021-11-01 10:07] VITALS: BP 134/64
--- NOTE | 2021-11-01 11:45 | NUR ---
TAKE THE PT OUT TO UBER IN WHEELCHAIR, PT. IS AWAKE ALERT ORIENTED X4.
== END 2021-11-01 12:00 | disposition home or self-care (01) | DRG 463 ==
LOC: MED 23:56 → MTU 10-30 22:48 → MIC 10-31 05:05
PROVIDERS: ADMIT Hospitalist; ATTEND Hospitalist
PROC: 5A1D70Z Performance of Urinary Filtration, Intermittent, Less than 6 Hours Per Day (ICD-10-PCS; principal; 2021-10-31)
PROC: 5A1D70Z Performance of Urinary Filtration, Intermittent, Less than 6 Hours Per Day (ICD-10-PCS; 2021-11-01)
DX: N39.0 Urinary tract infection, site not specified (principal); N17.0 Acute kidney failure with tubular necrosis; G93.41 Metabolic encephalopathy; F29 Unspecified psychosis not due to a substance or known physiological condition; E11.40 Type 2 diabetes mellitus with diabetic neuropathy, unspecified; D64.9 Anemia, unspecified; F20.9 Schizophrenia, unspecified; N18.6 End stage renal disease; F41.9 Anxiety disorder, unspecified; M54.9 Dorsalgia, unspecified; G89.29 Other chronic pain; I16.0 Hypertensive urgency; Z20.822 Contact with and (suspected) exposure to COVID-19; Z79.82 Long term (current) use of aspirin; Z79.899 Other long term (current) drug therapy
CPT/HCPCS: 36415; 80048; 80053; 80305; 81001; 81025; 83735; 84100; 85025; 87081; 87086; 87635-QW; 96372; 99285; C9803-CS; G0482; J1200; J2060; J3490

== ENCOUNTER 2021-12-04 12:37 | Emergency (ER) | payer MEDICAID ==
[~2021-12-04] VITALS: Ht 167.6 cm; Wt 99.3 kg
[~2021-12-04 12:37] MED LIST changes: +LEVO-315 PO; -NITR100C7 PO; +OLAN5ODT9 PO; -QUET25TA PO
[2021-12-04 12:47] VITALS: BP 183/81
[2021-12-04 13:15] LABS: BASOPHILS % (AUTO) 0.4 % (0.0-2.0); EOSINOPHILS # (AUTO) 0.2 K/uL (0-0.4); EOSINOPHILS % (AUTO) 2.6 % (0.0-4.0); HEMATOCRIT 36.2 % (36-48); HEMOGLOBIN 11.7 g/dL (12.0-16.0); LYMPHOCYTES # (AUTO) 2.7 K/uL (2.5-16.5); LYMPHOCYTES % (AUTO) 35.9 % (20.5-51.1); MEAN CORPUSCULAR HEMOGLOBIN 28 pg (27-31); MEAN CORPUSCULAR HGB CONC 32 g/dL (33-37); MONOCYTES # (AUTO) 0.5 K/uL (0.8-1.0); MONOCYTES % (AUTO) 6.6 % (1.7-9.3); NEUTROPHILS # (AUTO) 4.1 K/uL (1.8-7.7); NEUTROPHILS % (AUTO) 54.5 % (42.2-75.2); PLATELET COUNT (AUTO) 263 K/uL (140-450); RED BLOOD CELL COUNT(AUTO) 4.12 MIL/uL (4.20-5.40); RED CELL DISTRIBUTION WIDTH 16.5 % (11.6-13.7); WHITE BLOOD COUNT (AUTO) 7.6 K/uL (4.8-10.8)
[2021-12-04 13:33] LABS: ALBUMIN 3.3 g/dL (3.4-5.0); ANION GAP 20.4 (8-16); CARBON DIOXIDE 16.5 mmol/L (21-32); POTASSIUM 3.9 mmol/L (3.5-5.1); TOTAL BILIRUBIN 0.2 mg/dL (0.0-1.0)
[2021-12-04 13:36] LABS: CREATININE 6.2 mg/dL (0.6-1.3)
--- NOTE | 2021-12-04 14:05 | NUR ---
56/F PRESENTS TO ED WITH C/O LOWER ABDOMINAL PAIN, WEAKNESS AND INCREASED SOB WHEN WALKING. STATES SHE IS SUPPOSED TO GET DIALYSIS EVERY ES, THURS, SAT BUT STATES SHE HAS CHOSEN TO NOT GO FOR OVER A MONTH D/T ANXIETY. PATIENT DENIES N/V/D, CP.
[2021-12-04 17:26] LABS: APPEARANCE,URINE SL CLOUDY (CLEAR); BILIRUBIN,URINE NEGATIVE (NEGATIVE); BLOOD, URINE 1+ (NEGATIVE); COLOR,URINE YELLOW (YELLOW); LEUKOCYTE ESTERASE ,URINE 1+ (NEGATIVE); NITRITE, URINE NEGATIVE (NEGATIVE); UGLUCOSE NEGATIVE (NEGATIVE)
[2021-12-04] MEDS ORDERED: MORPHINE SULFATE 4 MG/ML SYR IM ONE (17:40)
[2021-12-04 17:43] LABS: WBC,URINE 80-100 /HPF (0-5)
[2021-12-04 17:49] VITALS: BP 199/96
[2021-12-04] MEDS ORDERED: ATA25 PO (17:53)
[2021-12-04] MEDS ORDERED: IBUP-2213 PO (17:53)
[2021-12-04] MEDS ORDERED: CIPR500T4 PO (17:53)
[2021-12-04] MEDS ORDERED: ACET-8386 PO (17:53)
--- NOTE | 2021-12-04 17:57 | NUR ---
PATIENTS BP IS 199/96, DR. HERR MADE AWARE. NO NEW ORDERS.
--- NOTE | 2021-12-04 18:15 | NUR ---
Patient discharged with v/s stable. Written and verbal after care instructions ABUOT UTI given and explained. Patient alert, oriented and verbalized understanding of instructions. Ambulatory with steady gait. All questions addressed prior to discharge. ID band removed. Patient advised to follow up with PMD. Rx of MOTRIN, CIPRO, NORCO 5-325MG, ATARAX given. Patient educated on indication of medication including possible reaction and side effects. Opportunity to ask questions provided and answered. DR HERR STATED OKAY TO DC WITH CURRENT VITALS
== END 2021-12-04 18:15 | disposition home or self-care (01) ==
LOC: MED 12:37
DX: N39.0 Urinary tract infection, site not specified (principal); I10 Essential (primary) hypertension; F17.200 Nicotine dependence, unspecified, uncomplicated; Z79.899 Other long term (current) drug therapy; Z90.49 Acquired absence of other specified parts of digestive tract; Z90.710 Acquired absence of both cervix and uterus
CPT/HCPCS: 36415; 71045; 80053; 81001; 83690; 83880; 85025; 87086; 96372; 99284; J2270

== ENCOUNTER 2021-12-23 02:37 | Emergency (ER) | payer MEDICAID ==
[~2021-12-23] VITALS: Ht 170.2 cm; Wt 98.9 kg
[2021-12-23 02:37] VITALS: BP 178/90
[~2021-12-23 02:37] MED LIST changes: +ACET-8386 PO; +ATA25 PO; +CIPR500T4 PO; +IBUP-2213 PO
--- NOTE | 2021-12-23 02:40 | NUR ---
TREMAINE FROM HOME S/P FALL OVER HER WALKER WITH RT ARM AND SHOULDER PAIN
--- NOTE | 2021-12-23 02:40 | NUR ---
TO LOBBY A/W BED VIA W/C
--- NOTE | 2021-12-23 03:24 | NUR ---
ERMD ASSESSING PT
[2021-12-23] MEDS ORDERED: MORPHINE SULFATE 10 MG/ML VIAL IM ONE (03:30)
--- NOTE | 2021-12-23 04:00 | NUR ---
PT IN RAD
--- NOTE | 2021-12-23 04:11 | NUR ---
BACK FROM X RAY VIA W/C WITH THE TECH
[2021-12-23] MEDS ORDERED: LID5T TP (04:51)
[2021-12-23 04:54] VITALS: BP 147/70
--- NOTE | 2021-12-23 04:54 | NUR ---
Patient discharged with v/s stable. Written and verbal after care instructions given and explained. Patient alert, oriented and verbalized understanding of instructions. Ambulatory with steady gait. All questions addressed prior to discharge. ID band removed. Patient advised to follow up with PMD. Rx of LIDODERM PATCH given. Patient educated on indication of medication including possible reaction and side effects. Opportunity to ask questions provided and answered.
== END 2021-12-23 04:54 | disposition home or self-care (01) ==
LOC: MED 02:37
DX: S43.401A Unspecified sprain of right shoulder joint, initial encounter (principal); I10 Essential (primary) hypertension; N18.9 Chronic kidney disease, unspecified; Z98.890 Other specified postprocedural states; W18.30XA Fall on same level, unspecified, initial encounter; Y93.89 Activity, other specified; Y92.89 Other specified places as the place of occurrence of the external cause; Y99.8 Other external cause status
CPT/HCPCS: 71101; 73030; 73060; 73080; 96372; 99284; J2270

== ENCOUNTER 2022-01-18 14:47 | Emergency (ER) | payer MEDICAID ==
[~2022-01-18] VITALS: Ht 167.6 cm; Wt 90.7 kg
[2022-01-18 14:47] VITALS: BP 162/80
[~2022-01-18 14:47] MED LIST changes: -LEVO-315 PO; +LEVO-481 PO; +LID5T TP
--- NOTE | 2022-01-18 16:10 | NUR ---
PT AMBULATED TO BED 01.
--- NOTE | 2022-01-18 17:00 | NUR ---
PT C/O SUBSTERNAL CHEST PAIN X30 MIN DIRECTOR STYLE
[2022-01-18 17:41] LABS: BASOPHILS # (AUTO) 0.1 K/uL (0.00-0.22); BASOPHILS % (AUTO) 0.8 % (0.0-2.0); EOSINOPHILS # (AUTO) 0.1 K/uL (0-0.4); EOSINOPHILS % (AUTO) 0.6 % (0.0-4.0); HEMATOCRIT 30.3 % (36-48); LYMPHOCYTES % (AUTO) 21.7 % (20.5-51.1); MEAN CORPUSCULAR HEMOGLOBIN 29 pg (27-31); MEAN CORPUSCULAR HGB CONC 33 g/dL (33-37); MEAN CORPUSCULAR VOLUME 86.3 fL (80-94); MONOCYTES # (AUTO) 0.8 K/uL (0.8-1.0); MONOCYTES % (AUTO) 8.4 % (1.7-9.3); NEUTROPHILS # (AUTO) 6.3 K/uL (1.8-7.7); NEUTROPHILS % (AUTO) 68.5 % (42.2-75.2); PLATELET COUNT (AUTO) 374 K/uL (140-450); RED BLOOD CELL COUNT(AUTO) 3.51 MIL/uL (4.20-5.40); RED CELL DISTRIBUTION WIDTH 15.1 % (11.6-13.7); WHITE BLOOD COUNT (AUTO) 9.1 K/uL (4.8-10.8)
[2022-01-18 18:02] LABS: ALBUMIN 2.7 g/dL (3.4-5.0); ANION GAP 18.1 (8-16); CARBON DIOXIDE 16.5 mmol/L (21-32); LIPASE 44 U/L (73-393); POTASSIUM 3.6 mmol/L (3.5-5.1); TOTAL BILIRUBIN 0.4 mg/dL (0.0-1.0)
[2022-01-18 18:08] LABS: CREATININE 5.6 mg/dL (0.6-1.3)
[2022-01-18 18:27] VITALS: BP 155/75
== END 2022-01-18 18:27 | disposition home or self-care (01) ==
LOC: MED 14:47
DX: R07.89 Other chest pain (principal); E11.22 Type 2 diabetes mellitus with diabetic chronic kidney disease; I12.0 Hypertensive chronic kidney disease with stage 5 chronic kidney disease or end stage renal disease; N18.6 End stage renal disease; F17.200 Nicotine dependence, unspecified, uncomplicated; Z99.2 Dependence on renal dialysis; Z79.899 Other long term (current) drug therapy; Z79.1 Long term (current) use of non-steroidal anti-inflammatories (NSAID); Z79.891 Long term (current) use of opiate analgesic; Z79.82 Long term (current) use of aspirin; Z79.2 Long term (current) use of antibiotics
CPT/HCPCS: 36415; 71045; 80053; 83690; 83880; 84484; 85025; 93005; 99285